=== PATIENT | female | born 2000 | race Hispanic/Latino ===

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

== ENCOUNTER 2019-01-28 09:14 | Day surgery (SDC) | payer OTHER ==
[2019-01-28 09:50] VITALS: BP 142/81; TEMP 98.1
[2019-01-28 09:51] VITALS: BMI 32.2
[2019-01-28] MEDS ORDERED: hydrALAZINE 20 MG/ML VIAL SLOW IVP PRN (10:05)
[2019-01-28 10:18] LABS: Amnisure Test No Membranes Rupture (No Rupture)
[2019-01-28 10:19] LABS: Amnisure Internal Control QC ACCEPTABLE (ACCEPTABLE)
[2019-01-28 11:11] LABS: Bilirubin Negative (Negative); Blood, Urine Negative (Negative); Glucose, Urine (Dipstick) Negative (Negative); Leukocyte Negative (Negative); Nitrite Negative (Negative); Protein, Urine (Dipstick) Negative (Neg-Trace); Urobilinogen 0.2 mg/dL (Less than 2)
[2019-01-28 11:12] LABS: Clarity Clear (Clear)
[2019-01-28 11:13] LABS: Urine Culture Reflex No No
[2019-01-28 11:25] LABS: Bacteria/HPF None Seen HPF (None Seen); RBC/HPF 0-3 HPF (0-3); WBC/HPF 0-3 HPF (0-3)
--- NOTE | 2019-01-28 13:32 | ULT ---
EXAM: OB ultrasound Biophysical profile COMPARISON: None HISTORY: female. Evaluate size, dates, and anatomy. TECHNIQUE: Multiplanar grayscale and color Doppler images were obtained in a transabdominal ult rasound. A biophysical profile was also performed. FINDINGS: There is a single live intrauterine with heart rate of 125 bpm. Estimated weight is 2241 g. Average age of the fetus based off today's examination is 34 weeks 1 day. BPD 8.50 cm -- 34 weeks 2 days HC 31.64 cm -- 35 weeks 4 days AC 29.90 cm -- 33 weeks 6 days FL 6.24 cm -- 32 weeks 2 days The placenta is anterior in location without focal abnormality. CHILANGO is 14.4 cm which is normal. The cervix is normal in length. There is no evidence of placenta previa. A biophysical profile was performed. The fetus scored 8 of 8 which is normal. IMPRESSION: 1. Single live intrauterine with estimated age of 34 weeks 1 day. 2. Normal biophysical profile
--- NOTE | 2019-01-28 13:32 | ULT ---
US Biophysical Profile: 01/28/2019 12:23 PM CLINICAL HISTORY: . COMPARISON: None. FINDINGS: heart rate: bpm. CHILANGO: cm Biophysical profile: 8 of 8 IMPRESSION: Normal biophysical profile
--- NOTE | 2019-01-28 13:44 | PRG ---
DATE OF SERVICE: 01/28/2019 PRIMARY OB: Flakito Morocho DO, MS CHIEF COMPLAINT: Leakage of fluid. HISTORY OF PRESENT ILLNESS: The patient is a 18-year-old G1, P0 female with an intrauterine at 32 weeks and a day, presenting for leakage of fluid that occurred about 3 or 4 this morning. The patient reports that she woke up and had her shorts and some of her bed wet and later in the morning began having worsening in her sharp pains and came in here for evaluation. The patient does report having intercourse last night prior to this event. She reports that she has had back and pelvic pain now for several weeks. The patient also is currently taking Macrobid for suppression as has a history of pyelonephritis earlier in this . The patient denies any recent fever or cough. She does report she is feeling under the weather and feeling pressure in her head and her ears. Believes that she is getting an illnesses going around in the community right now. She denies chest pain or shortness of breath. She has had nausea the last couple of months. Denies vomiting. Denies diarrhea or constipation. Reports hip problems, back problems that she attributes to the . She also reports pain from her back and down her right leg at times. She denies vaginal bleeding. She denies any change in discharge, leakage of fluid per HPI. Denies urinary urgency or frequency. PAST MEDICAL HISTORY: Negative. PAST SURGICAL HISTORY: Tonsillectomy. SOCIAL HISTORY: Denies drug, alcohol, or tobacco use. ALLERGIES: SULFA DRUGS. MEDICATIONS: 1. Macrobid for suppression. 2. Diclegis p.r.n. for nausea and vomiting. OB LABS: Blood type is A positive. Antibody screen is negative. Hepatitis B surface antigen is negative. HIV is negative. The patient was positive for gonorrhea and chlamydia back in August of this year, which is negative in October. The patient is rubella nonimmune. Diabetes screen is 92. Third trimester VDRL is nonreactive. Third trimester HIV is nonreactive. REVIEW OF SYSTEMS: Per HPI. PHYSICAL EXAMINATION: VITAL SIGNS: Blood pressure is 115/68, heart rate of 90, respiratory rate of 20 , temperature 98.1, and saturating 97% on room air. GENERAL: The patient appears to be in no acute distress. She is alert, oriented, cooperative, and pleasant to interact with. HEAD: Normocephalic and atraumatic. LUNGS: Clear to auscultation bilaterally. HEART: Regular rate and rhythm. ABDOMEN: Gravid, soft. She does have some sharp tenderness in her lower pelvic region with deviation of the uterus to the left and right. She has left-sided SI joint tenderness. She has some lower back paravertebral tenderness. No CVA tenderness. Vulva without masses, lesions, or erythema. Perineum is dry. Vagina is moist, but no evidence of pulling. No discharge. Cervix is visibly closed. heart tracing shows a baseline in the 130s, however, unable to get a strip long enough to get reactivity due to the movement. AmniSure test is negative. VPIII is pending. Ultrasound shows a BPP of 8/8 performed for nonreactive NST and normal fluid levels. ASSESSMENT AND PLAN: The patient is a 18-year-old female, who presented with leakage of fluid and pelvic pain and there is no evidence of rupture of membranes at this time. A VPIII is pending, those not available yet. The fetus is reassuring by BPP as it is difficult to keep the baby on the monitor for a heart tracing. The patient is being discharged to home. She has been given reassurance and is to follow up with her primary OB as scheduled. Addendum 01/28/19 [id number] VP3 + for doug- I have called the pt and left a message to contact L&D for lab results. Rx for metronidazole sent via electronic to pharmacy on record. Job ID: [id number] MTDD
== END 2019-01-28 13:14 | disposition home or self-care (01) ==
LOC: L&D/OP 09:14
PROVIDERS: ATTEND Obstetrics & Gynecology
DX: O99.89 Other specified diseases and conditions complicating pregnancy, childbirth and the puerperium (principal); N89.8 Other specified noninflammatory disorders of vagina; R10.2 Pelvic and perineal pain; O23.03 Infections of kidney in pregnancy, third trimester; Z3A.32 32 weeks gestation of pregnancy; Z88.2 Allergy status to sulfonamides
CPT/HCPCS: 51701; 76815; 76819; 81001; 84112; 87480; 87510; 87660; 99285

== ENCOUNTER 2019-01-30 11:01 | Day surgery (SDC) | payer OTHER ==
[2019-01-30] MEDS ORDERED: hydrALAZINE 20 MG/ML VIAL SLOW IVP PRN (12:17)
[2019-01-30] MEDS ORDERED: diphenhydrAMINE 50 MG/ML VIAL IVP SCH (13:00)
[2019-01-30] MEDS ORDERED: Lactated Ringer's 1,000 ML IV SCH (13:00)
[2019-01-30 13:11] VITALS: BMI 32.2
[2019-01-30 13:37] LABS: FFN Internal QC Analyzer PASS (PASS); FFN Internal QC Cassette PASS (PASS); Fetal Fibronectin Negative (Negative)
--- NOTE | 2019-01-30 16:22 | HP ---
PRIMARY OB: Flakito Morocho DO, MS CHIEF COMPLAINT: Mucus plug. HISTORY OF PRESENT ILLNESS: The patient is a 18-year-old G1, P0 female with an intrauterine at 32 weeks and 3 days, who is presenting to Labor and Delivery with multiple complaints. The patient reports early this morning, she had a few contractions, was unable to describe the frequency or intensity of these contractions other than that she was worried that maybe signs that her baby was coming. She did state for an hour, she was able to feel that she had 3 contractions in 15 minutes and then had a long pause. She was unable to describe how long, and she had contractions again. The patient reports that she had this one episode of mucus discharge, she noticed when she wiped. She has had 3-day course of cough and head congestion and loose stools. She has a sister who had a baby at 33 weeks, which is per her at worry that she may deliver early also. The patient denies fever. She denies falls or trauma. She denies headache. She reports head congestion, ear pressure and pain, particularly on the right side, and reports cough. Reports nausea and vomiting. Again states that she is unable to keep anything down, but when I asked to give specifics, she was unable to give specifics. She did say that she attempted last night after taking her iron and vitamin to take Zofran, and shortly after taking her Zofran, she vomited. The patient reports pelvic pain, this has been present for a while now, sharp in nature, and worse with activity and movement. Denies urinary urgency or frequency. She is taking her metronidazole for previously diagnosed bacterial vaginosis. PAST MEDICAL HISTORY: Negative. PAST SURGICAL HISTORY: She had tonsillectomy. SOCIAL HISTORY: Denies drug, alcohol, or tobacco use. ALLERGIES: SULFA DRUGS. MEDICATIONS: 1. Macrobid for suppression. 2. Metronidazole for bacterial vaginosis. 3. Diclegis p.r.n. for nausea and vomiting. OB LABS: Blood type is A positive. Antibody screen is negative. Hepatitis B surface antigen is negative. HIV is negative. The patient was positive for gonorrhea and chlamydia in August and then negative in October. She is rubella nonimmune. Diabetes screen was 92. Third trimester VDRL is nonreactive. Third trimester HIV is nonreactive. REVIEW OF SYSTEMS: Per HPI. PHYSICAL EXAMINATION: VITAL SIGNS: Blood pressure 110/64, heart rate of 89, respiratory rate of 18. GENERAL: She appears to be in no acute distress. She is alert, oriented, cooperative, and pleasant to interact with. HEENT: Head, normocephalic and atraumatic. Ear exam shows on the right, clear external canal with no erythema. The tympanic membrane is clear. No erythema or injection. There is fluid behind the eardrum, but is not purulent in nature and that is clear. Left ear, the patient has significant ear wax obstructing the visual field of the ear. LUNGS: Clear to auscultation bilaterally. HEART: Has regular rate and rhythm. ABDOMEN: Gravid and soft, nontender with deviation of manipulation to the uterus. EXTREMITIES: Nontender, nonedematous. : Vulva without masses, lesions, or erythema. Vagina is moist and visibly closed. She does have clear mucousy discharge at the presence of the external os. The patient is fingertip and 30% to 50% effaced. Of note. She had an ultrasound a couple days ago showing a cervical length of 2.8 cm. The patient has been given reassurance. heart tracing performed for pelvic pain, baseline is noted to be in the 130s with moderate long-term variability, positive 15/15 accelerations, no decelerations. Tocometer shows some episodes of irritability, not felt by the patient. LABORATORY DATA: fibronectin is negative. ASSESSMENT AND PLAN: The patient is a 18-year-old, G1, P0 female with an intrauterine at 32 weeks and 3 days, who worries about premature delivery. There is no evidence of labor at this time. fibronectin is negative. The patient is being discharged to home. Fetus is reassuring and reactive. She will be given Tylenol No. 3 to help with her cough and her discomfort. We have encouraged that she take it at night to help her sleep. She has also been counseled to take Benadryl 1/2 to 1 tablet every 4 hours and to hydrate aggressively. We spent about 10 minutes [id number] specifically discussing and describing how she can when and how to time her contractions and note the intensity. The patient again is being discharged to home. She has followup with primary OB next week, which we have encouraged that to keep. Job ID: [id number]
== END 2019-01-30 14:55 | disposition home health service (06) ==
LOC: L&D/OP 11:01
PROVIDERS: ATTEND Obstetrics & Gynecology
DX: O99.89 Other specified diseases and conditions complicating pregnancy, childbirth and the puerperium (principal); N89.8 Other specified noninflammatory disorders of vagina; O23.593 Infection of other part of genital tract in pregnancy, third trimester; B96.89 Other specified bacterial agents as the cause of diseases classified elsewhere; Z3A.32 32 weeks gestation of pregnancy; Z88.2 Allergy status to sulfonamides
CPT/HCPCS: 82731; J1200

== ENCOUNTER 2019-03-17 19:15 | Inpatient (IN) | payer OTHER ==
[2019-03-17 23:33] VITALS: BMI 33.7
[2019-03-18] MEDS ORDERED: hydrALAZINE 20 MG/ML VIAL SLOW IVP PRN ×2 (00:43→15:05)
[2019-03-18] MEDS ORDERED: Ondansetron PF 4 MG/2 ML Vial IVP PRN ×3 (00:43→15:05)
[2019-03-18] MEDS ORDERED: HYDROcodone/Acetaminophen 5/325 mg Tablet PO PRN ×3 (00:43→15:05)
[2019-03-18] MEDS ORDERED: Butorphanol Tartrate 1 MG/ML VIAL SLOW IVP PRN (00:43)
[2019-03-18] MEDS ORDERED: Lidocaine 1% (PF) 30 ML VIAL SC PRN (00:43)
[2019-03-18] MEDS ORDERED: Ibuprofen 800 MG TAB PO PRN (00:43)
[2019-03-18] MEDS ORDERED: Misoprostol 100 MCG TAB VAG SCH (00:45)
[2019-03-18] MEDS ORDERED: Lactated Ringer's 1,000 ML IV SCH (01:00)
[2019-03-18] MEDS: Misoprostol 100 MCG TAB VAG SCH ×2 (01:14→15:46)
[2019-03-18 01:32] LABS: Hemoglobin 12.3 g/dL (12.0-16.0); Mean Corpuscular HGB CONC 34.9 g/dL (32.0-36.0); Mean Corpuscular Hemoglobin 30.7 pg (25.0-35.0); Mean Corpuscular Volume 87.9 fL (78.0-98.0); Mean Platelet Volume 9.3 fL (7.4-10.4); Platelet Count 211 thou/uL (130-400); RBC Distribution Width 11.9 % (11.5-14.5); White Blood Cell (WBC) Count 11.6 thou/uL (4.8-10.8)
[2019-03-18 02:10] LABS: HBSAg Index 0.22 S/CO (0-0.99); Hep B Surf Ag Non-Reactive S/CO (NonReactive)
[2019-03-18 05:22] LABS: Syphilis Antibody Nonreactive (Nonreactive); Syphilis Antibody Index 0.03 S/CO (<1.00 Non-Reactive)
[2019-03-18] MEDS ORDERED: Fentanyl 4 mcg/Bup 0.1% Cadd 100 ML ONE (06:03)
[2019-03-18] MEDS: Lactated Ringer's 1,000 ML IV SCH ×2 (06:45→10:27)
[2019-03-18] MEDS ORDERED: Fentanyl 100 MCG/2 ML VIAL ONE (06:45)
[2019-03-18] MEDS ORDERED: Penicillin G Potassium 5 MILL.UNITS in Sodium Chloride 0.9% 100 ML IVPB SCH (07:00)
[2019-03-18] MEDS ORDERED: Acetaminophen 325 MG TAB PO PRN (07:19)
[2019-03-18] MEDS ORDERED: Lactated Ringer's 500 ML IV PRN (07:19)
[2019-03-18] MEDS ORDERED: ePHEDrine/0.9% NaCl/PF SYRINGE 50 mg/10 ml SLOW IVP PRN (07:19)
[2019-03-18] MEDS ORDERED: Promethazine HCl 25 MG/ML VIAL IM PRN (07:19)
[2019-03-18] MEDS ORDERED: Naloxone HCl 0.4 mg/ml Vial IVP PRN ×2 (07:19)
[2019-03-18] MEDS ORDERED: diphenhydrAMINE 50 MG/ML VIAL IVP PRN (07:19)
[2019-03-18] MEDS ORDERED: Communication Order-Pharmacy FS SCH (07:30)
[2019-03-18] MEDS ORDERED: Fentanyl 4 mcg/Bupivacaine 0.1% Cassette 100 ML EPIDURAL SCH (07:30)
[2019-03-18] MEDS ORDERED: NS w/ Oxytocin 10 units 500 ML ONE (07:56)
[2019-03-18] MEDS: Penicillin G 2.5 MILL.units 2.5 MILL.UNITS in Premix Bag 1 BAG IVPB SCH ×2 (10:58→15:46)
[2019-03-18] MEDS ORDERED: Bupivacaine HCl 0.25%/Epi 0.0005/PF 10 ML VIAL FS ONE (11:11)
[2019-03-18] MEDS: NS / Oxytocin 40 units/1000ml 1,000 ML IV PRN ×2 (11:45→12:52)
--- NOTE | 2019-03-18 12:48 | PDOC.OPDEL ---
OB Operative/Delivery Note Delivery Dr/Surgeon: Rashawn Pre-Delivery Diagnosis: elective induction Procedure/Post Delivery Dx: spontaneous vaginal delivery Weeks gestation: 39 Anesthesia: epidural - Findings A Sex: female - Additional Findings/Plan Placenta delivered: spontaneous Repaired Obstetrical Laceration: periurethral Estimated blood loss: <200ml Post delivery plan: routine recovery
[2019-03-18] MEDS ORDERED: diphenhydrAMINE 25 MG CAP PO PRN (15:05)
[2019-03-18] MEDS ORDERED: Milk Of Magnesia 30 ML UDCUP PO PRN (15:05)
[2019-03-18] MEDS ORDERED: Benzocaine-Menthol 82.5 ML CAN TOP PRN (15:05)
[2019-03-18] MEDS ORDERED: Bisacodyl 10 MG SUPP PR PRN (15:05)
[2019-03-18] MEDS ORDERED: NS / Oxytocin 40 units/1000ml 1,000 ML IV SCH (15:05)
[2019-03-18] MEDS: HYDROcodone/Acetaminophen 5/325 mg Tablet PO PRN ×2 (15:28→20:50)
[2019-03-18] MEDS: Docusate Calcium (SURFAK) 240 MG CAP PO SCH (20:51)
[2019-03-18] MEDS: Ibuprofen 800 MG TAB PO SCH (22:00)
[2019-03-18] MEDS: Lanolin Ointment 7 GM TUBE TOP PRN (22:05)
[2019-03-19] MEDS: Ibuprofen 800 MG TAB PO SCH ×3 (05:02→21:14)
[2019-03-19] MEDS: HYDROcodone/Acetaminophen 5/325 mg Tablet PO PRN ×3 (05:46→18:44)
--- NOTE | 2019-03-19 08:16 | PDOC.PP ---
Post Progress Note Post Day #: 1 Subjective: doing well, no concerns, latching well, normal lochia PO intake tolerated: yes Flatus: yes Ambulation: yes Vital Signs (12 hours) Temp Pulse Resp BP Pulse Ox 03/19/19 08:11 97.9 F 74 20 108/57 L 97 03/19/19 05:00 97.8 F 67 20 105/59 L 97 03/19/19 02:28 98.0 F 94 20 112/62 98 03/18/19 20:20 98.7 F 75 16 107/55 L 95 Weight Weight 197 lb - Physical Examination General: NAD Respiratory: non-labored breathing Abdominal: no distention Fundus firm & at: below umb Psychiatric: A&Ox3, normal affect Result Diagrams: 03/18/19 01:19 Additional Labs: Post Labs Blood Type A POSITIVE 03/18/19 01:19 Hep Bs Antigen Non-Reactive S/CO (NonReactive) 03/18/19 01:19 (1) 39 weeks gestation of Code(s): Z3A.39 - 39 WEEKS GESTATION OF Status: Acute (2) Vaginal delivery Code(s): O80 - ENCOUNTER FOR FULL-TERM UNCOMPLICATED DELIVERY Status: Acute - Assessment/Plan PPD1 doing well, plan for DC tomorrow AM.
[2019-03-19] MEDS: Ferrous Sulfate 325 MG TAB PO SCH ×3 (08:37→15:48)
[2019-03-19] MEDS: Prenatal Vitamin 1 TAB PO SCH (08:40)
[2019-03-19] MEDS: Docusate Calcium (SURFAK) 240 MG CAP PO SCH ×2 (08:40→21:13)
[2019-03-19] MEDS ORDERED: Adacel (T-DAP) 0.5 ML SYRINGE IM ONE (15:05)
[2019-03-19] MEDS: Lanolin Ointment 7 GM TUBE TOP PRN (18:50)
[2019-03-20] MEDS: Ibuprofen 800 MG TAB PO SCH (06:12)
[2019-03-20] MEDS: Ferrous Sulfate 325 MG TAB PO SCH (07:30)
[2019-03-20 08:24] VITALS: BP 121/54; TEMP 98.3
--- NOTE | 2019-03-20 08:34 | PDOC.PP ---
Post Progress Note Post Day #: 2 Subjective: doing well, no concerns, request rx for breast pump PO intake tolerated: yes Flatus: yes Ambulation: yes Vital Signs (12 hours) Temp Pulse Resp BP Pulse Ox 03/20/19 08:22 98.3 F 69 20 121/54 L 98 Weight Weight 197 lb - Physical Examination General: NAD Respiratory: non-labored breathing Abdominal: no distention Skin: no rash Psychiatric: A&Ox3, normal affect Result Diagrams: 03/18/19 01:19 Additional Labs: Post Labs Blood Type A POSITIVE 03/18/19 01:19 Hep Bs Antigen Non-Reactive S/CO (NonReactive) 03/18/19 01:19 (1) 39 weeks gestation of Code(s): Z3A.39 - 39 WEEKS GESTATION OF Status: Acute (2) Vaginal delivery Code(s): O80 - ENCOUNTER FOR FULL-TERM UNCOMPLICATED DELIVERY Status: Acute - Assessment/Plan PPD2 doing well, plan for DC today.
[2019-03-20] MEDS: Prenatal Vitamin 1 TAB PO SCH (09:20)
[2019-03-20] MEDS: Docusate Calcium (SURFAK) 240 MG CAP PO SCH (09:20)
[2019-03-20] MEDS ORDERED: Measles/Mumps/Rubella 10 MCG/0.5 ML VIAL SC ONE (11:00)
== END 2019-03-20 11:55 | disposition home or self-care (01) | DRG 807 ==
LOC: L&D 23:03 → 3SW 03-18 15:40
PROVIDERS: ADMIT Student in an Organized Health Care Education/Training Program; ATTEND Student in an Organized Health Care Education/Training Program
PROC: 10E0XZZ Delivery of Products of Conception, External Approach (ICD-10-PCS; principal; 2019-03-18)
PROC: 0HQ9XZZ Repair Perineum Skin, External Approach (ICD-10-PCS; 2019-03-18)
PROC: 3E033VJ Introduction of Other Hormone into Peripheral Vein, Percutaneous Approach (ICD-10-PCS; 2019-03-18)
DX: O99.824 Streptococcus B carrier state complicating childbirth (principal); Z37.0 Single live birth; Z3A.39 39 weeks gestation of pregnancy; O70.0 First degree perineal laceration during delivery
CPT/HCPCS: 36415; 51702; 85027; 86780; 86850; 86900; 86901; 87340; 90471; 90707; 90732; G0009; J0595; J2540; J2590; J3010; J3490

== ENCOUNTER 2019-06-18 22:40 | Inpatient (IN) | payer MEDICAID, OTHER ==
[2019-06-18 23:43] LABS: Bacteria/HPF None Seen HPF (None Seen); Bilirubin Negative (Negative); Blood, Urine Negative (Negative); Clarity Turbid (Clear); Glucose, Urine (Dipstick) Normal (Negative); Leukocyte 75 Leu/uL (Negative); Nitrite Negative (Negative); Protein, Urine (Dipstick) 10 mg/dL (Neg-Trace); RBC/HPF 0-3 HPF (0-3); Urobilinogen 6 mg/dL (Less than 2)
[2019-06-18 23:44] LABS: Pregnancy Test - Urine (BHCG) Negative (Negative); Pregu Control Background? CLEAR/WHITE (CLR/WHITE); Pregu Control Bar Appear? YES (CONTROL BAR); Specific Gravity 1.025 (1.002-1.036)
[2019-06-19] MEDS ORDERED: Ondansetron ODT 4 MG TAB ONE (00:30)
[2019-06-19 00:50] LABS: #Lymphocytes 2.4 thou/uL (1.20-3.40); #Monocytes 0.6 thou/uL (0.11-0.59); #Neutrophils 9.2 thou/uL (1.40-6.50); %Basophils 0.2 % (0.0-1.0); %Eosinophils 0.4 % (0.0-10.0); %Lymphocytes 19.4 % (28.0-48.0); %Neutrophils 75.1 % (31.0-61.0); Hemoglobin 15.1 g/dL (12.0-16.0); Mean Corpuscular HGB CONC 33.8 g/dL (32.0-36.0); Mean Corpuscular Hemoglobin 29.5 pg (25.0-35.0); Mean Corpuscular Volume 87.3 fL (78.0-98.0); Mean Platelet Volume 8.3 fL (7.4-10.4); Platelet Count 320 thou/uL (130-400); RBC Distribution Width 11.7 % (11.5-14.5); Red Blood Cell (RBC) Count 5.12 mill/uL (4.00-5.20); White Blood Cell (WBC) Count 12.3 thou/uL (4.8-10.8)
[2019-06-19 01:13] LABS: ALT (SGPT) 140 U/L (8-55); AST (SGOT) 195 U/L (5-30); Albumin 4.9 g/dL (3.5-5.0); Alkaline Phosphatase 175 U/L (40-100); Anion Gap 14 mmol/L (10-20); BUN (Urea Nitrogen) 11 mg/dL (8.4-21.0); Bilirubin, Total 0.9 mg/dL (0.2-1.2); Calc. Creatinine Clearance 0 mL/min (70-130); Carbon Dioxide 27 mmol/L (22-29); Chloride 105 mmol/L (98-107); Estimated GFR-MDRD Greater than 90; Globulin 3.9 g/dL (2.4-3.5); Glucose 102 mg/dL (70-105); Lipase 30 U/L (8-78); Potassium 3.9 mmol/L (3.5-5.1); Protein, Total 8.8 g/dL (6.0-8.3); Sodium 142 mmol/L (136-145)
[2019-06-19] MEDS ORDERED: HYDROcodone/Acetaminophen 5/325 mg Tablet ONE (01:15)
[2019-06-19] MEDS ORDERED: Sodium Chloride 0.9% 100 ML ONE ×2 (02:45→16:52)
[2019-06-19] MEDS ORDERED: Piperacillin/Tazobactam 3.375 GM VIAL ONE ×2 (02:45→16:52)
[2019-06-19] MEDS ORDERED: Fentanyl 100 MCG/2 ML VIAL ONE ×2 (03:42→16:29)
[2019-06-19] MEDS ORDERED: Ondansetron ODT 4 MG TAB SL PRN (04:07)
[2019-06-19] MEDS ORDERED: Ondansetron PF 4 MG/2 ML Vial IVP PRN (04:07)
[2019-06-19] MEDS: Dextrose 5 % And 0.9 % NaCl 1,000 ML IV SCH ×2 (04:59→11:14)
--- NOTE | 2019-06-19 06:50 | ULT ---
RIGHT UPPER QUADRANT ULTRASOUND: Date: 06/19/2019 INDICATION: Right upper quadrant pain with radiation to right shoulder and back for 3 months with nausea and vomi ting. FINDINGS: Gallbladder is moderately distended. Common bile duct is enlarged, measuring 9.1 mm. No pericholecyst ic fluid is evident. There is report of a positive sonographic Kelley's sign. No cole intrahepatic b iliary ductal dilatation is noted. Visualized aspects of the pancreas appear within normal limits. A majority of the pancreas is obscure d. Right kidney measures 9.8 x 3.6 x 4.1 cm. No focal renal lesion or hydronephrosis is demonstrated. IMPRESSION: 1. Gallbladder distention without visible gallstones. There is report of sonographic Kelley's sign. Findings are equivocal by ultrasound for acute cholecystitis. 2. Dilated common bile duct which is 9.1 mm. This is prominent for age and a distal obstructing proc ess such as distal obstructing stone or sludge is of concern. Recommend consideration for a MRCP eval uation and GI consultation. POS: HARMONY
[2019-06-19] MEDS ORDERED: Piperacillin/Tazobactam 3.375 GM in Sodium Chloride 0.9% 100 ML IVPB SCH (09:00)
[2019-06-19 09:05] LABS: #Eosinphils 0.1 thou/uL (0.0-0.7); #Monocytes 0.6 thou/uL (0.11-0.59); #Neutrophils 4.1 thou/uL (1.40-6.50); %Basophils 0.5 % (0.0-1.0); %Eosinophils 0.8 % (0.0-10.0); %Lymphocytes 38.7 % (28.0-48.0); %Monocytes 7.3 % (0.0-4.0); %Neutrophils 52.7 % (31.0-61.0); Hemoglobin 12.4 g/dL (12.0-16.0); Mean Corpuscular HGB CONC 32.3 g/dL (32.0-36.0); Mean Corpuscular Hemoglobin 28.5 pg (25.0-35.0); Mean Corpuscular Volume 88.3 fL (78.0-98.0); Platelet Count 272 thou/uL (130-400); RBC Distribution Width 11.8 % (11.5-14.5); Red Blood Cell (RBC) Count 4.35 mill/uL (4.00-5.20); White Blood Cell (WBC) Count 7.7 thou/uL (4.8-10.8)
[2019-06-19 09:27] LABS: ALT (SGPT) 138 U/L (8-55); AST (SGOT) 125 U/L (5-30); Albumin 3.6 g/dL (3.5-5.0); Alkaline Phosphatase 135 U/L (40-100); Anion Gap 7 mmol/L (10-20); BUN (Urea Nitrogen) 10 mg/dL (8.4-21.0); Bilirubin, Total 0.6 mg/dL (0.2-1.2); Calc. Creatinine Clearance 183 mL/min (70-130); Calcium 8.3 mg/dL (7.8-10.44); Carbon Dioxide 28 mmol/L (22-29); Chloride 108 mmol/L (98-107); Estimated GFR-MDRD Greater than 90; Globulin 2.7 g/dL (2.4-3.5); Glucose 111 mg/dL (70-105); Lipase 14 U/L (8-78); Potassium 3.7 mmol/L (3.5-5.1); Protein, Total 6.3 g/dL (6.0-8.3); Sodium 139 mmol/L (136-145)
[2019-06-19] MEDS ORDERED: Sodium Chloride 0.9% 1,000 ML IV SCH (09:45)
--- NOTE | 2019-06-19 10:36 | HP ---
CHIEF COMPLAINT: Abdominal pain. HISTORY OF PRESENT ILLNESS: Ms. Beckham is a 18-year-old woman, who is 3 months . She states that started having intermittent abdominal pain shortly after her delivery. She thought that it might just be cramping because she had had an IUD implanted, so she was just managing it symptomatically. She would have episodes of nausea and vomiting, but that usually went away within an hour or so of the onset of symptoms. Yesterday she had her most severe episode yet and states that the nausea and vomiting became intractable and nothing that she was taking to try to help her symptoms with staying down, so she came to the emergency room. She was evaluated and found to have severe right upper quadrant tenderness and elevated LFTs and white count on imaging of her gallbladder. Her gallbladder was distended and had a positive ultrasonographic Kelley sign, no visible stones in the gallbladder. The bile duct was enlarged to 9 mm. No hydronephrosis was seen. She states that her recent was complicated by preeclampsia, but she has not had any problems with her blood pressure since delivery. She was admitted for pyelonephritis during her as well, which was treated medically and resolved. She has not had any kidney problems since then that she knows of. She states that her previous episodes of pain were more diffuse, but the episode last night was localized to the right upper quadrant and radiated to her back and she describes the pain as unbearable and unrelenting. She states that it did get a little better overnight, but it is starting to come back today. She was noted to have a low heart rate and blood pressure this morning, but was able to get up and take her shower, however, she states that she was little dizzy when she was taking the shower and had to use the stool for her shower which is not typical for her. She thinks this may be due to all of the vomiting that she did yesterday. She has not had problems with low blood pressure or hear rate in the past. PAST MEDICAL HISTORY: Asthma, but she has not used her inhaler in several months and preeclampsia during her recent and pyelonephritis during her recent . PAST SURGICAL HISTORY: Tonsillectomy and adenoidectomy at 1 years of age. FAMILY HISTORY: All of her female relatives had gallbladder removed. Her grandmother had a heart attack and stroke in her 70s. Her grandfather had lung cancer and several family members have diabetes and hypertension. SOCIAL HISTORY: She does not smoke, drink, or use illicit drugs nor does she have any history of excessive alcohol use. She is here with her boyfriend, whom she designate as medical decision maker if she is unable to make decisions for herself. REVIEW OF SYSTEMS: Ten system review of systems is negative except per HPI. No fevers, chills, jaundice or icterus during her recent episode of pain. No dysuria or hematuria. PHYSICAL EXAMINATION: VITAL SIGNS: Heart rate 45, blood pressure 90/56, 97% saturation on room air with respiratory rate of 18, temperature is 97.8, heart rate has mostly been in the 60s prior to this recent check. GENERAL: Reveals a healthy-appearing young woman, in no acute distress. She is not flushed or toxic in appearance. She is not jaundiced or icteric. HEENT: Unremarkable. NECK: Supple without lymphadenopathy or thyroid nodules. HEART: Regular in its rate and rhythm without murmurs, rubs, or gallops. LUNGS: Clear to auscultation bilaterally. ABDOMEN: Soft and nondistended without palpable masses or hernias. She is mildly diffusely tender, but extremely tender to palpation in the right upper quadrant. There is some fullness in the area consistent with a distended gallbladder. She has a positive Kelley sign and some voluntary guarding. EXTREMITIES: Warm and well perfused without edema. NEUROLOGIC: No focal deficits. PSYCHIATRIC: Alert, oriented, and appropriate. LABORATORY DATA: White count was elevated on admission at 12, but has come down to 7.7 since admission. Electrolytes are unremarkable. LFTs are mildly elevated. Bilirubin was in the high range of normal at 0.9 whereas her baseline has been 0.4 to 0.6 in the past, but this has come down to 0.6 this morning on recheck. AST has gone from 195 to 125, ALT from 140 to 138, and alkaline phosphatase from 175 to 35. Lipase has remained normal at 14. Urinalysis last night was negative for blood with no bacteria seen and urine test was negative. Ultrasound images are reviewed and I agree with the written report. The gallbladder is somewhat dilated, but there is no pericholecystic fluid or wall thickening. Her bile duct is somewhat dilated as well, especially for her young age. ASSESSMENTS: Cholecystitis with concern for choledocholithiasis given the elevation in her LFTs. Her LFTs have come down somewhat overnight. I think it is reasonable to proceed with laparoscopic cholecystectomy primarily with an intraoperative cholangiogram to evaluate the common bile duct. If she does have any evidence of obstruction to flow, then Gastroenterology will be consulted for ERCP. The patient does give consent to proceed with ERCP if necessary. The procedure of laparoscopic cholecystectomy with cholangiogram was discussed with the patient. Inherent risks were also discussed. These include, but are not limited to, bleeding, infection, risks of anesthesia, damage to nearby structures including bowel, liver, and bile duct, and need for other procedures including ERCP. She understands and accepts these risks and wishes to proceed. We will continue with her perioperative antibiotics. Since she does not have any history of bradycardia in the past, I have ordered a 12-lead EKG, but on examination she appears to be in sinus rhythm with some physiologic increase in her heart rate with deep respiration, so I think this is most likely sinus bradycardia due to her young age and good health. I have ordered some additional IV fluids given her protracted nausea and vomiting yesterday and her dizziness when she was up taking her shower earlier this morning. She has IV pain medication and nausea medication ordered as needed and she has been added on to the OR list for today. Job ID: [id number]
[2019-06-19] MEDS: Morphine 2 MG/ML SYRINGE SLOW IVP PRN ×3 (11:12→23:46)
[2019-06-19] MEDS: D5 1/2 NS w/20 mEq KCL 1,000 ML ONE ×2 (11:24→11:39)
[2019-06-19] MEDS ORDERED: D5 1/2 NS w/20 mEq KCL 0 ML ONE (11:26)
[2019-06-19] MEDS ORDERED: D5 1/2 NS w/20 mEq KCL 1,000 ML ONE (11:42)
[2019-06-19] MEDS ORDERED: PROPOFOL 200 MG/20 ML VIAL ONE (14:43)
[2019-06-19] MEDS ORDERED: Glycopyrrolate 0.2 MG/ML 5 ML SYRINGE ONE (14:43)
[2019-06-19] MEDS ORDERED: Lidocaine 1% PF 5 ML VIAL ONE (14:43)
[2019-06-19] MEDS ORDERED: Ondansetron PF 4 MG/2 ML Vial ONE (14:43)
[2019-06-19] MEDS ORDERED: Ketorolac Tromethamine 30 MG/ML VIAL ONE (14:43)
[2019-06-19] MEDS ORDERED: Rocuronium Bromide 10 MG/ML (10ML VIAL) ONE (14:43)
[2019-06-19] MEDS ORDERED: Dexamethasone 20 MG/5 ML VIAL ONE (14:43)
[2019-06-19] MEDS ORDERED: Lidocaine 1% w/Epinephrine 1:100K 20 ML VIAL ONE (16:23)
[2019-06-19] MEDS ORDERED: Bupivacaine PF 0.5% 30 ML VIAL ONE (16:23)
[2019-06-19] MEDS ORDERED: Iothalamate Meglumine 60% 50 ML VIAL FS ONE (16:24)
[2019-06-19] MEDS ORDERED: PACU-Morphine 4MG/ML VIAL SLOW IVP PRN (18:30)
[2019-06-19] MEDS ORDERED: Promethazine HCl 25 MG/ML VIAL SLOW IVP PRN (18:30)
[2019-06-19] MEDS ORDERED: HYDROmorphone 2 MG/ML VIAL SLOW IVP PRN (18:30)
[2019-06-19] MEDS ORDERED: Meperidine HCl/PF 25 MG/ML VIAL SLOW IVP PRN (18:30)
[2019-06-19] MEDS ORDERED: Promethazine HCl 25 MG/ML VIAL IM PRN (18:30)
[2019-06-19] MEDS ORDERED: Morphine Sulfate 2 MG/ML SYRINGE SLOW IVP PRN (18:30)
[2019-06-19] MEDS ORDERED: Ondansetron HCl/PF 4 MG/2 ML Vial IVP PRN (18:30)
--- NOTE | 2019-06-19 18:38 | PDOC.OP ---
Operative Note - Operative Note Operative Note: DATE OF PROCEDURE: 06/19/2019 PROCEDURES: Laparoscopic cholecystectomy with intraoperative cholangiogram. SURGEON: Ninoska He M.D. PREOPERATIVE DIAGNOSIS: Cholecystitis POSTOPERATIVE DIAGNOSIS: Cholecystitis and choledocholithiasis FINDINGS: Distended gallbladder with omental adhesions. Abnormal cholangiogram with partially obstructing lucencies in the distal common bile duct. HISTORY: Patient with signs and symptoms of biliary colic. Laparoscopic cholecystectomy was recommended for symptomatic relief and prevention of future episodes. Intraoperative cholangiogram was also recommended. PROCEDURE: After informed consent was obtained and appropriate preoperative antibiotics were administered, the patient was taken to the operating room and placed in the supine position and general endotracheal anesthesia was administered. The stomach was decompressed with an OG tube and the abdomen was prepped and draped in standard sterile fashion. Local anesthesia was infused to the skin and subcutaneous tissues at the umbilical level. A transverse skin incision was made. The fascia was elevated and a Veress needle was placed into the abdominal cavity without difficulty. Opening pressure was less than 5 and carbon dioxide gas easily insufflated to an intra-abdominal pressure of 15, which the patient tolerated well. The Veress needle was withdrawn and a [place] port advanced under direct vision. The abdominal cavity was carefully examined. There was no evidence of Veress needle or of trocar injury. Local anesthesia was infused to the skin and subcutaneous tissues at the epigastric, right upper quadrant, and right lateral abdominal sites and trocars were placed under direct vision of the laparoscope. The fundus of the gallbladder was grasped and retracted superiorly. Omental adhesions were taken down through the avascular plane exposing the infundibulum. The infundibulum was grasped and retracted laterally. The serosa was stripped inferiorly at the level of the neck of the gallbladder exposing the cystic duct and artery which were traced clearly to their insertion in the gallbladder. These were dissected free circumferentially and the cystic duct was clipped at the level of the neck of the gallbladder. The cystic artery was clipped but not divided. An incision was made in the cystic duct inferior to the clip and the cystic duct was palpated with no stones palpable. Clear bile was seen to flow from the cystic duct incision. A cholangiogram catheter was introduced and placed into the cystic duct and secured with a clip. A cholangiogram was obtained which showed an adequate length of cystic duct. There was normal filling of the common bile duct down to the distal common bile duct were there was a meniscus sign and lucencies with very little contrast getting into the duodenum. Glucagon was administered and allowed to circulate for 3 minutes and a second cholangiogram obtained which showed continued partially obstructing lucencies in the distal common bile duct. There was normal retrograde flow into the common hepatic duct beyond the level of the bifurcation without filling defects. Dr. Quintana of gastroenterology was contacted for possible immediate ERCP but unfortunately the ERCP cart was already in use for another procedure so the patient was scheduled for ERCP tomorrow. The cholangiogram catheter was removed and the cystic duct clipped below the incision in the cystic duct. The cystic duct was divided between these clips and the previously placed clip. The cystic artery was clipped and divided between the previously placed clips. The gallbladder was then dissected free of the gallbladder bed using hook electrocautery. Prior to complete removal of the gallbladder from the gallbladder bed, the area of the cystic duct and artery stumps was examined. The clips were in good position completely across these structures and there was no bleeding and no leakage of bile. The gallbladder was then placed into an EndoCatch bag and drawn out through the epigastric incision. The epigastric trocar was replaced and the operative site easily irrigated to clear. There was no significant bleeding or spillage of bile. The epigastric trocar was removed and the fascia closed under direct laparoscopic vision with a 0 Vicryl suture on a GraNee needle in a [id number] manner with excellent technical result. The right upper quadrant and right lateral abdominal trocars were removed and hemostasis verified. Carbon dioxide gas was allowed to desufflate through the umbilical trocar which was then removed. The skin incisions were closed with 4-0 subcuticular Monocryl sutures and Dermabond dressings were placed. The patient was extubated and taken to the recovery room in good condition. There were no complications. ESTIMATED BLOOD LOSS: Minimal. SPECIMEN : Gallbladder and contents.
[2019-06-19] MEDS ORDERED: Fentanyl 100 MCG/2 ML VIAL SLOW IVP PRN (19:35)
[2019-06-19] MEDS ORDERED: Acetaminophen 325 MG TAB PO PRN (19:36)
[2019-06-19] MEDS: D5 1/2 NS w/20 mEq KCL 1,000 ML IV SCH (19:43)
[2019-06-19] MEDS ORDERED: Pantoprazole 40 MG VIAL IVP SCH (19:45)
[2019-06-19] MEDS: Ondansetron PF 4 MG/2 ML Vial SLOW IVP PRN (23:46)
[2019-06-19] MEDS: Piperacillin/Tazobactam 3.375 GM in Sodium Chloride 0.9% 100 ML IVPB SCH (23:47)
--- NOTE | 2019-06-20 00:30 | CON ---
DATE OF CONSULTATION: 06/19/2019 REQUESTING PHYSICIAN: Ninoska He MD REASON FOR CONSULTATION: Choledocholithiasis. HISTORY OF PRESENT ILLNESS: Coleen Beckham is a 18-year-old woman, who is three months . She has been having intermittent abdominal pain for about the past 3 months since delivery, associated with nausea and vomiting. It became quite severe yesterday. She was found to have leukocytosis, as well as some elevation in transaminases and abdominal ultrasound showed gallbladder distention with positive Kelley sign, though no stones visualized, but the bile duct was enlarged to [address] He took the patient for laparoscopic cholecystectomy this afternoon. Intraoperative cholangiogram was performed and I have viewed the images, and the cholangiogram does indeed show lucencies in the distal common bile duct consistent with choledocholithiasis. The procedure otherwise went well. The patient is recovering in the PACU, awake and alert. She has no other complaints. PAST MEDICAL HISTORY: Preeclampsia, pyelonephritis, asthma, well controlled. Tonsillectomy and adenoidectomy, cholecystectomy earlier today, 06/19/2019. FAMILY HISTORY: Multiple family members have had cholecystectomy. Grandfather had lung cancer. SOCIAL HISTORY: No smoking, alcohol, or drug use. ALLERGIES: SULFA. OUTPATIENT MEDICATIONS: Ibuprofen as needed. INPATIENT MEDICATIONS: 1. Morphine p.r.n. 2. Ondansetron p.r.n. 3. Promethazine p.r.n. PHYSICAL EXAMINATION: VITAL SIGNS: Pulse 56, blood pressure 126/81, and 100% oxygen saturation on room air. GENERAL: Somnolent but arousable and able to converse appropriately, in no acute distress. SKIN: No jaundice. No rashes were palpable. EYES: No scleral icterus. Extraocular movements intact. ENT: Mucous membranes are moist. No oral lesions. LYMPH: No submandibular or supraclavicular lymphadenopathy. THYROID: Nontender to palpation. HEART: Regular rate and rhythm. LUNGS: Clear to auscultation bilaterally. ABDOMEN: Mild distention. Bowel sounds are hypoactive. Incision sites look good. Some diffused tenderness to palpation. EXTREMITIES: No peripheral edema. VESSELS: Radial pulses 2+ bilaterally. NEURO: Cranial nerves 2 through 12 intact bilaterally. No focal deficits. LABORATORY STUDIES: WBC 7.7, platelets 272, hemoglobin 12.4. Sodium 139, potassium 3.7, BUN 10, creatinine 0.63, total bilirubin 0.6, alkaline phosphatase 135, AST 125, ALT 138, lipase only 14, albumin 3.6. Urinalysis showed 4 to 6 wbc's. Urine test negative. IMAGING STUDIES: Preoperative abdominal ultrasound demonstrated distended gallbladder with enlarged common bile duct measuring 9.1 mm with positive Kelley sign. Intraoperative cholangiogram was also reviewed and this does show dilation of the common bile duct with lucency in the distal common bile duct consistent with choledocholithiasis. ASSESSMENT AND PLAN: 1. Choledocholithiasis, based on positive intraoperative cholangiogram. 2. Elevated LFTs. I have discussed the case with Dr. He, as well as with the patient. Endoscopic retrograde cholangiopancreatography is indicated for clearance of the common bile duct and likely biliary sphincterotomy. We can plan to accomplish this tomorrow. Procedure was discussed in detail. Thank you for the consultation. Please call anytime with questions or concerns. Job ID: [id number]
[2019-06-20] MEDS: Morphine 2 MG/ML SYRINGE SLOW IVP PRN ×4 (03:28→20:48)
[2019-06-20] MEDS: Piperacillin/Tazobactam 3.375 GM in Sodium Chloride 0.9% 100 ML IVPB SCH ×3 (05:13→17:44)
[2019-06-20 05:39] LABS: #Lymphocytes 1.3 thou/uL (1.20-3.40); #Monocytes 0.1 thou/uL (0.11-0.59); #Neutrophils 7.4 thou/uL (1.40-6.50); %Basophils 0.2 % (0.0-1.0); %Lymphocytes 14.7 % (28.0-48.0); %Monocytes 1.5 % (0.0-4.0); %Neutrophils 83.5 % (31.0-61.0); Hemoglobin 12.6 g/dL (12.0-16.0); Mean Corpuscular HGB CONC 34.2 g/dL (32.0-36.0); Mean Corpuscular Volume 87.6 fL (78.0-98.0); Mean Platelet Volume 8.5 fL (7.4-10.4); Platelet Count 257 thou/uL (130-400); RBC Distribution Width 11.5 % (11.5-14.5); White Blood Cell (WBC) Count 8.9 thou/uL (4.8-10.8)
[2019-06-20 06:15] LABS: ALT (SGPT) 145 U/L (8-55); AST (SGOT) 88 U/L (5-30); Albumin 3.8 g/dL (3.5-5.0); Alkaline Phosphatase 147 U/L (40-100); Anion Gap 13 mmol/L (10-20); BUN (Urea Nitrogen) 6 mg/dL (8.4-21.0); Bilirubin, Total 0.5 mg/dL (0.2-1.2); Calc. Creatinine Clearance 175 mL/min (70-130); Calcium 8.9 mg/dL (7.8-10.44); Carbon Dioxide 22 mmol/L (22-29); Chloride 105 mmol/L (98-107); Estimated GFR-MDRD Greater than 90; Globulin 2.9 g/dL (2.4-3.5); Glucose 142 mg/dL (70-105); Lipase 11 U/L (8-78); Potassium 4.1 mmol/L (3.5-5.1); Protein, Total 6.7 g/dL (6.0-8.3); Sodium 136 mmol/L (136-145)
--- NOTE | 2019-06-20 09:51 | RAD ---
OPERATIVE CHOLANGIOGRAM: History: Laparoscopic cholecystectomy. FINDINGS: Single contrast-injected image was performed which shows filling of a common duct. There is a filling defect at the ampulla. It is possible that this a air bubble, but a small stone is not excluded. The duct appears slightly dilated. IMPRESSION: Questionable stone or spasm in the region of the ampulla, less likely an air bubble. POS: TPC
[2019-06-20] MEDS ORDERED: diphenhydrAMINE 50 MG/ML VIAL ONE (10:27)
[2019-06-20] MEDS ORDERED: PROPOFOL 200 MG/20 ML VIAL ONE (10:27)
[2019-06-20] MEDS ORDERED: Glycopyrrolate 0.2 MG/ML 5 ML SYRINGE ONE (10:27)
[2019-06-20] MEDS ORDERED: Ondansetron PF 4 MG/2 ML Vial ONE ×2 (10:27→15:04)
[2019-06-20] MEDS ORDERED: Dexamethasone 20 MG/5 ML VIAL ONE (10:27)
[2019-06-20] MEDS ORDERED: Rocuronium Bromide 10 MG/ML (10ML VIAL) ONE (10:27)
[2019-06-20] MEDS ORDERED: Ketorolac Tromethamine 30 MG/ML VIAL ONE (10:27)
[2019-06-20] MEDS ORDERED: Lidocaine 1% PF 5 ML VIAL ONE (10:27)
[2019-06-20] MEDS ORDERED: Naloxone HCl 0.4 mg/ml Vial ONE (10:28)
[2019-06-20] MEDS: D5 1/2 NS w/20 mEq KCL 1,000 ML IV SCH ×2 (10:55→17:42)
[2019-06-20] MEDS ORDERED: Indomethacin 50 MG SUPP ONE (12:18)
[2019-06-20] MEDS ORDERED: Iothalamate Meglumine 60% 50 ML VIAL FS ONE (12:18)
[2019-06-20] MEDS ORDERED: Fentanyl 100 MCG/2 ML VIAL ONE (12:36)
[2019-06-20] MEDS ORDERED: Meperidine HCl/PF 25 MG/ML VIAL SLOW IVP PRN (13:30)
[2019-06-20] MEDS ORDERED: HYDROmorphone 2 MG/ML VIAL SLOW IVP PRN (13:30)
[2019-06-20] MEDS ORDERED: Promethazine HCl 25 MG/ML VIAL SLOW IVP PRN (13:30)
[2019-06-20] MEDS ORDERED: Promethazine HCl 25 MG/ML VIAL IM PRN (13:30)
--- NOTE | 2019-06-20 13:54 | RAD ---
ERCP: 06/20/2019 COMPARISON: None HISTORY: Recent cholecystectomy with distal common bile duct filling defect on recent intraoperative cholangiogram FINDINGS: A single image is provided during an ERCP. There is contrast media within the common bile d uct. There is a balloon inflated within the distal common bile duct. Distal CBD is not opacified/fully evaluated. The opacified portions of the CBD are unremarkable. IMPRESSION: Single view during ERCP as detailed above.
[2019-06-20] MEDS ORDERED: Ibuprofen 600 MG TAB PO PRN (16:51)
[2019-06-20] MEDS ORDERED: traMADol HCl 50 MG TAB PO PRN ×3 (16:51→23:48)
[2019-06-20] MEDS ORDERED: Ibuprofen 800 MG TAB PO PRN (16:51)
[2019-06-20] MEDS ORDERED: Acetaminophen 325 MG TAB PO PRN ×2 (16:51)
[2019-06-20] MEDS ORDERED: Ibuprofen 200 MG TAB PO PRN (16:51)
[2019-06-20] MEDS ORDERED: HYDROcodone/Acetaminophen 5/325 mg Tablet PO PRN ×2 (16:51)
--- NOTE | 2019-06-20 17:10 | PDOC.GSPN ---
Surgery Progress Note: Subj - Subjective Narrative: Patient was still having a fair amount of pain this morning when I saw her, which is not surprising since I think that most of her pain is from her common bile duct stone. She has since undergone ERCP with stone extraction. Labs looked okay this morning and repeat labs are ordered for tomorrow. As long she tolerates her diet and her lab work looks good she should be able to go home in the morning. Dr. Hutchins will be rounding on her tomorrow. She continues to have rather low heart rates and blood pressures intermittently but these are minimally symptomatic, and sometimes completely asymptomatic, and her EKG looks normal so I believe that this is a normal variant. She has tolerated anesthesia well without any arrhythmias. Surgery Progress Note: Obj - Vital signs Vital signs: Vital Signs - Most Recent Temp Pulse Resp BP Pulse Ox 97.4 F L 46 L 14 130/72 100 06/20/19 15:45 06/20/19 15:45 06/20/19 15:45 06/20/19 15:45 06/20/19 15:45 Surgery Progress Note: Results - Labs Result Diagrams: 06/20/19 05:00 06/20/19 05:00 Lab results: Laboratory Results - last 24 hr 06/20/19 06/20/19 05:00 05:00 WBC 8.9 RBC 4.20 Hgb 12.6 Hct 36.8 MCV 87.6 MCH 30.0 MCHC 34.2 RDW 11.5 Plt Count 257 MPV 8.5 Neutrophils % 83.5 H Lymphocytes % 14.7 L Monocytes % 1.5 Eosinophils % 0.0 Basophils % 0.2 Neutrophils # 7.4 H Lymphocytes # 1.3 Monocytes # 0.1 L Eosinophils # 0.0 Basophils # 0.0 Sodium 136 Potassium 4.1 Chloride 105 Carbon Dioxide 22 Anion Gap 13 BUN 6 L Creatinine 0.66 Estimated GFR (MDRD) Greater than 90 Glucose 142 H Calcium 8.9 Total Bilirubin 0.5 AST 88 H ALT 145 H Alkaline Phosphatase 147 H Serum Total Protein 6.7 Albumin 3.8 Globulin 2.9 Albumin/Globulin Ratio 1.3 Lipase 11
--- NOTE | 2019-06-20 17:11 | OP ---
DATE OF PROCEDURE: 06/20/2019 DOCUMENTATION SPEC SURGEON: None. PROCEDURES PERFORMED: Endoscopic retrograde cholangiopancreatography with biliary sphincterotomy and balloon extraction of common bile duct stone. INDICATIONS FOR PROCEDURE: Choledocholithiasis, based on positive intraoperative cholangiogram performed yesterday during laparoscopic cholecystectomy. MEDICATIONS: 1. See Anesthesia record. 2. Indomethacin 100 mg per rectum. FINDINGS: After discussion of the risks, benefits, and alternatives of the procedure, informed consent was obtained and witnessed. Pre-endoscopic cardiopulmonary examination was satisfactory. Time-out was performed before sedation was achieved. Sedation was achieved with Anesthesia assistance in the endoscopy unit. The patient was endotracheally intubated under general anesthesia. She was placed in a semiprone position on the fluoroscopy table. A Pentax side-viewing duodenoscope was placed into the oropharynx and passed down the esophagus and beyond the stomach to the second portion of the duodenum under indirect visualization. Indirect views of the stomach and duodenal mucosa all appeared normal. The ampulla was brought into view with the endoscope in the short position. The ampulla appeared normal. Using a triple lumen dome tip sphincterotome and a 0.035 guidewire, we attempted to selectively cannulate the common bile duct. Initially, the guidewire was only passing into the pancreatic duct, but with use of the double wire technique, we were able to get a wire up the common bile duct and into the left intrahepatic system. The guidewire from the pancreatic duct was then removed. A biliary cholangiogram was then performed. This demonstrated some mild dilation of the common bile duct, though no clear filling defect in the distal common bile duct. The decision was made to proceed with sphincterotomy and balloon sweep. A generous biliary sphincterotomy was performed without difficulty. A wire exchange was then performed exchanging the sphincterotome for a 12 mm balloon. Multiple passes were made with the balloon, inflated to 12 mm. We successfully extracted a single yellow pigmented stone from the common bile duct. Occlusion cholangiogram demonstrated no filling defects. Following stone extraction, a final sweep was made to sweep out excess contrast from the bile duct. The working apparatus was then completely withdrawn, and the endoscope was completely withdrawn suctioning out excess air and fluid. The patient tolerated the procedure well. There were no immediate postprocedure complications. Postprocedure fluoroscopic images demonstrated no retroperitoneal or subdiaphragmatic free air. IMPRESSION: 1. Choledocholithiasis, now was successful biliary sphincterotomy and balloon extraction of single yellow pigmented stone from the common bile duct. 2. Otherwise normal exam. RECOMMENDATIONS: 1. Monitor for potential complications. 2. Advance diet as tolerated. Please call back anytime with any questions or concerns. Job ID: [id number]
[2019-06-20] MEDS: Pantoprazole 40 MG VIAL IVP SCH (21:08)
[2019-06-20] MEDS ORDERED: Morphine 2 MG/ML SYRINGE SLOW IVP PRN (23:41)
[2019-06-20] MEDS ORDERED: Morphine 4 MG/ML VIAL SLOW IVP PRN (23:42)
[2019-06-20] MEDS ORDERED: Bisacodyl 10 MG SUPP PR SCH (23:59)
[2019-06-20] MEDS ORDERED: Ketorolac Tromethamine 30 MG/ML VIAL IVP SCH (23:59)
[2019-06-21] MEDS: Acetaminophen 500 MG TAB PO SCH ×5 (00:54→23:24)
[2019-06-21] MEDS: Piperacillin/Tazobactam 3.375 GM in Sodium Chloride 0.9% 100 ML IVPB SCH ×5 (00:54→23:24)
--- NOTE | 2019-06-21 01:33 | PRG ---
DATE OF SERVICE: 06/20/2019 SUBJECTIVE: The patient was seen this evening during rounds. She was sitting up in bed. She reports her pain is 10/10. She is postoperative day 1 after laparoscopic cholecystectomy with intraoperative cholangiogram and postoperative day #0 status post ERCP with sphincterotomy and balloon extraction of common bile duct stone. The patient reports she is voiding. She is having trouble having a bowel movement. She reports she feels like she needs to, but her pain is too much and she is not able to bear down. She is tolerating a clear liquid diet today. Nursing has been giving the patient IV morphine, and she has not received oral pain medications at this time. OBJECTIVE: VITAL SIGNS: Temperature 98.3, pulse 54, respirations 16, oxygen saturation 100% on room air, blood pressure 120/76. GENERAL: Well-appearing young female, sitting up in bed with some moderate distress. PULMONARY: Equal chest rise and fall. No signs of acute respiratory distress. ABDOMEN: Soft, nontender, nondistended. ASSESSMENT: 1. Postoperative day #1 status post laparoscopic cholecystectomy with intraoperative cholangiogram due to cholecystitis and cholelithiasis. 2. She is also postop day 0 after an ERCP with sphincterotomy and balloon extraction of common bile duct stone. 3. History of asthma, preeclampsia, and pyelonephritis during the . PLAN: We will continue the patient's current diet and D5 half-normal saline at 125 an hour. We will discontinue Tylenol No 3 and [place] pain medications. We will start the patient on Tylenol 1 g q.6 hours as well as p.r.n. tramadol 50 or 100 mg q.6 hours. The patient will also receive a one time 30 mg dose of IV Toradol followed by 15 mg q.6 hours x3 days. The patient will continue to have IV morphine p.r.n. for breakthrough pain overnight. We will repeat blood work in the morning. The patient also to receive a suppository tonight. Possibly, we will start the patient on an oral bowel regimen tomorrow. We will also consult walking program to encourage ambulation as much as possible. I have also asked the patient to sit up in the chair as much as possible and use her incentive spirometer. Job ID: [id number]
[2019-06-21 05:25] LABS: #Basophils 0.1 thou/uL (0.0-0.2); #Lymphocytes 2.8 thou/uL (1.20-3.40); #Monocytes 0.6 thou/uL (0.11-0.59); #Neutrophils 5.7 thou/uL (1.40-6.50); %Basophils 0.7 % (0.0-1.0); %Eosinophils 0.1 % (0.0-10.0); %Monocytes 6.9 % (0.0-4.0); %Neutrophils 62.2 % (31.0-61.0); Hemoglobin 11.6 g/dL (12.0-16.0); Mean Corpuscular HGB CONC 34.2 g/dL (32.0-36.0); Mean Corpuscular Volume 87.6 fL (78.0-98.0); Mean Platelet Volume 8.8 fL (7.4-10.4); Platelet Count 252 thou/uL (130-400); RBC Distribution Width 11.5 % (11.5-14.5); Red Blood Cell (RBC) Count 3.89 mill/uL (4.00-5.20); White Blood Cell (WBC) Count 9.2 thou/uL (4.8-10.8)
[2019-06-21 05:58] LABS: ALT (SGPT) 132 U/L (8-55); AST (SGOT) 73 U/L (5-30); Albumin 3.6 g/dL (3.5-5.0); Alkaline Phosphatase 158 U/L (40-100); Anion Gap 11 mmol/L (10-20); BUN (Urea Nitrogen) 8 mg/dL (8.4-21.0); Bilirubin, Total 0.6 mg/dL (0.2-1.2); Calc. Creatinine Clearance 165 mL/min (70-130); Calcium 8.4 mg/dL (7.8-10.44); Carbon Dioxide 26 mmol/L (22-29); Chloride 107 mmol/L (98-107); Estimated GFR-MDRD Greater than 90; Globulin 2.5 g/dL (2.4-3.5); Glucose 135 mg/dL (70-105); Lipase 90 U/L (8-78); Potassium 4.1 mmol/L (3.5-5.1); Protein, Total 6.1 g/dL (6.0-8.3); Sodium 140 mmol/L (136-145)
[2019-06-21] MEDS ORDERED: Ketorolac Tromethamine 30 MG/ML VIAL IVP SCH (06:00)
[2019-06-21] MEDS: D5 1/2 NS w/20 mEq KCL 1,000 ML IV SCH ×4 (06:06→23:34)
[2019-06-21] MEDS: traMADol HCl 50 MG TAB PO PRN ×3 (07:45→20:25)
[2019-06-21] MEDS: Famotidine/PF 20 mg/2ml Vial SLOW IVP SCH ×2 (07:46→20:24)
[2019-06-21] MEDS: Enoxaparin Sodium 40 MG/0.4 ML SYRINGE SC SCH (07:46)
--- NOTE | 2019-06-21 10:23 | PRG ---
DATE OF SERVICE: 06/21/2019 SUBJECTIVE: Ms. Beckham has been clinically stable since ERCP yesterday. She has continued to have generalized abdominal discomfort. She has not had any bowel movement since her surgery. She was given a Dulcolax suppository last night, but did not really have results with this. She has remained afebrile. Opioid pain medications are being decreased today. OBJECTIVE: VITAL SIGNS: Temperature 97.6, pulse 50, blood pressure 105/60, and 98% oxygen saturation on room air. GENERAL: No acute distress, sitting up in bed comfortably. HEART: Regular rate and rhythm. LUNGS: Clear to auscultation bilaterally. ABDOMEN: Bowel sounds are present though somewhat hypoactive throughout all 4 quadrants. The abdomen is soft. Diffuse tenderness to palpation, but no guarding rebound tenderness. EXTREMITIES: No peripheral edema. LABORATORY STUDIES: WBC 9.2, hemoglobin 11.6, platelets 252. Sodium 140, potassium 4.1, BUN 8, creatinine 0.70, glucose 135, total bilirubin 0.6, alkaline phosphatase 158, AST down to 73, ALT down to 132. Lipase is mildly elevated today just above the upper limit of normal at 90. ASSESSMENT/PLAN: 1. Choledocholithiasis, status post successful endoscopic retrograde cholangiopancreatography with biliary sphincterotomy and stone extraction yesterday 06/20/2019. 2. Cholecystitis, status post cholecystectomy, postoperative day 2. 3. Generalized abdominal pain, postoperative. 4. Constipation, postoperative. The patient does have very mild lipase elevation today, but is otherwise clinically stable. She may indeed have developed some mild pancreatitis, but I suspect that her current symptoms are primarily due to postoperative constipation. She may benefit from another suppository today. Agree with weaning down the narcotic pain medications. Dietary advancement per the discretion of the Surgical Service. Please call anytime with questions or concerns, if GI can be of further assistance. Job ID: [id number]
[2019-06-21] MEDS ORDERED: Polyethylene Glycol 3350 17 GM Packet PO SCH (10:30)
[2019-06-21] MEDS: Ondansetron PF 4 MG/2 ML Vial SLOW IVP PRN (13:42)
--- NOTE | 2019-06-21 20:13 | PRG ---
DATE OF SERVICE: 06/21/2019 SUBJECTIVE: I saw Ms. Beckham this morning. She is postoperative day #2, status post laparoscopic cholecystectomy, and postoperative day #1, status post ERCP and common bile duct stone extraction. She reports residual abdominal pain today. She ambulates with minimum difficulty. Appetite is poor. She is passing flatus, but has not had any bowel movement. OBJECTIVE: VITAL SIGNS: This morning include blood pressure 105/60, pulse is 56, respiratory rate is 15, temperature 98.1 degrees Fahrenheit, oxygen saturation is 94% on room air. HEART: Regular rate with mild sinus bradycardia. No murmurs or gallops auscultated. LUNGS: Clear to auscultation bilaterally. Breathing, regular and nonlabored. ABDOMEN: Soft and nondistended with incisional tenderness to palpation. Clearly, has no peritoneal signs on examination. NEUROLOGIC: No focal deficits present. LABORATORY FINDINGS: Include CBC with 9200 white blood cells, hemoglobin and hematocrit are 11.6 and 34.0 respectively, platelet count is 252,000. Metabolic profile; sodium 140, potassium 4.1, chloride is 107, bicarb is 26, BUN is 8, creatinine is 0.70, glucose 135, total bilirubin is 0.6, AST and ALT are stable at 73 and 132 respectively, alkaline phosphatase is also stable at 158. Serum lipase is marginally elevated at 90 post ERCP. IMPRESSION: 1. Postop day #2, status post laparoscopic cholecystectomy, and postop day #1, status post ERCP with common bile duct stone extraction. 2. Mild acute post ERCP pancreatitis, hemodynamically stable. PLAN: 1. I encourage oral intake and increase activity. 2. We will start the patient on some stool softeners. Anticipate discharge within next 24 to 48 hours if pain is well controlled and appetite is improved. Plan has been discussed with the patient and her significant other at bedside. They both indicated understanding of information given. I have answered their questions. Job ID: [id number]
[2019-06-21] MEDS: Senokot S 8.6-50 MG TAB PO SCH (20:24)
[2019-06-21] MEDS: Pantoprazole 40 MG VIAL IVP SCH (20:25)
--- NOTE | 2019-06-22 02:22 | PRG ---
DATE OF SERVICE: 06/21/2019 SUBJECTIVE: The patient was seen this evening during rounds. She was sitting up in bed. Reported abdominal pain and bloating. Has not had a bowel movement yet. Continues to ambulate. Tolerating her diet except she does not like to drink cold things that she reports that hurts her abdomen. OBJECTIVE: VITAL SIGNS: Temperature 98.0, pulse 56, respirations 16, oxygen saturations 99% on room air, and blood pressure 102/65. GENERAL: Well-appearing young female, sitting up in bed with no signs of acute distress. PULMONARY: Equal chest rise and fall. No signs of acute respiratory distress. ASSESSMENT: 1. Postoperative day #2 status post laparoscopic cholecystectomy with intraoperative cholangiogram and postoperative day #1 status post endoscopic retrograde cholangiopancreatography with sphincterotomy and balloon extraction of common bile duct stone. 2. History of asthma, preeclampsia, and pyelonephritis while . PLAN: Continue current diet and pain regimen. Continue IV fluids. Continue to encourage the patient to ambulate as much as possible. The patient to receive a soapsuds enema tonight to try to help have a bowel movement. Continue current p.o. bowel regimen as well. Job ID: [id number]
[2019-06-22] MEDS: Piperacillin/Tazobactam 3.375 GM in Sodium Chloride 0.9% 100 ML IVPB SCH ×4 (05:29→23:03)
[2019-06-22] MEDS: Acetaminophen 500 MG TAB PO SCH ×4 (06:24→23:03)
[2019-06-22] MEDS ORDERED: Morphine 4 MG/ML VIAL IV SCH (06:45)
[2019-06-22] MEDS: Enoxaparin Sodium 40 MG/0.4 ML SYRINGE SC SCH (09:22)
[2019-06-22] MEDS: Famotidine/PF 20 mg/2ml Vial SLOW IVP SCH ×2 (09:22→20:36)
[2019-06-22] MEDS: Polyethylene Glycol 3350 17 GM Packet PO SCH (09:30)
[2019-06-22] MEDS: Senokot S 8.6-50 MG TAB PO SCH ×2 (09:30→20:36)
[2019-06-22] MEDS: D5 1/2 NS w/20 mEq KCL 1,000 ML IV SCH ×4 (09:34→22:16)
[2019-06-22 11:08] LABS: ALT (SGPT) 77 U/L (8-55); AST (SGOT) 21 U/L (5-30); Albumin 3.4 g/dL (3.5-5.0); Alkaline Phosphatase 111 U/L (40-100); Anion Gap 9 mmol/L (10-20); BUN (Urea Nitrogen) 4 mg/dL (8.4-21.0); Band 1 % (5-11); Bilirubin, Total 0.3 mg/dL (0.2-1.2); Calc. Creatinine Clearance 177 mL/min (70-130); Calcium 8.3 mg/dL (7.8-10.44); Carbon Dioxide 27 mmol/L (22-29); Chloride 105 mmol/L (98-107); Eosinophils 3 % (0-10); Estimated GFR-MDRD Greater than 90; Globulin 2.4 g/dL (2.4-3.5); Glucose 96 mg/dL (70-105); Hemoglobin 11.5 g/dL (12.0-16.0); Lipase 30 U/L (8-78); Lymphocytes 70 % (28-48); MDiff Complete? YES; Magnesium 1.7 mg/dL (1.7-2.2); Mean Corpuscular HGB CONC 34.3 g/dL (32.0-36.0); Mean Corpuscular Hemoglobin 30.3 pg (25.0-35.0); Mean Corpuscular Volume 88.2 fL (78.0-98.0); Monocytes 2 % (0-4); Neutrophil 24 % (31-61); Platelet Count 226 thou/uL (130-400); Potassium 3.6 mmol/L (3.5-5.1); Protein, Total 5.8 g/dL (6.0-8.3); RBC Distribution Width 11.6 % (11.5-14.5); Red Blood Cell (RBC) Count 3.81 mill/uL (4.00-5.20); Sodium 137 mmol/L (136-145); White Blood Cell (WBC) Count 6.3 thou/uL (4.8-10.8)
--- NOTE | 2019-06-22 13:01 | PRG ---
DATE OF SERVICE: 06/22/2019 SUBJECTIVE: The patient was seen this morning during rounds, awake, alert, in no distress, sitting up in hospital bed. The patient still has not had a bowel movement. The patient reports not passing any gas at this time. She continues to ambulate frequently. The patient did have some nausea overnight and vomited her medications. OBJECTIVE: VITAL SIGNS: Temperature 97.9, pulse 69, respirations 16, SpO2 of 99% on room air, blood pressure 108/69. GENERAL: Well-appearing young female, sitting up in hospital bed, in no acute distress. PULMONARY: Equal chest rise and fall. Good inspiratory and expiratory effort. Bilateral breath sounds clear. ABDOMEN: Soft, nondistended. Incisional tenderness with palpation. NEUROLOGIC: No focal deficits. LABORATORY AND DIAGNOSTIC DATA: Laboratory pending. No new diagnostic tests. ASSESSMENT: 1. Postop day #3, status post laparoscopic cholecystectomy with interoperative cholangiogram, and postop day #2, status post endoscopic retrograde cholangiopancreatography with sphincterotomy and balloon extraction of common bile duct stone. 2. History of asthma, preeclampsia, pyelonephritis while . PLAN: Continue to have the patient ambulate as much as possible. The patient is still pending a bowel movement. She did receive a soapsuds enema last night. Continue p.o. bowel regimen. We will obtain LFTs, CBC, and chemistry. The patient was examined by Dr. Hutchins during morning rounds. Job ID: [id number]
[2019-06-22] MEDS ORDERED: Ketorolac Tromethamine 30 MG/ML VIAL IVP SCH (14:15)
[2019-06-22 14:51] VITALS: BMI 30.4
[2019-06-22] MEDS: traMADol HCl 50 MG TAB PO PRN ×2 (16:47→23:03)
[2019-06-22] MEDS: Ondansetron PF 4 MG/2 ML Vial SLOW IVP PRN ×2 (17:50→22:13)
[2019-06-22] MEDS: Pantoprazole 40 MG VIAL IVP SCH (20:36)
--- NOTE | 2019-06-23 03:31 | PRG ---
DATE OF SERVICE: 06/22/2019 SUBJECTIVE: The patient was seen this evening during rounds. She was lying in bed. She reported her pain is unchanged, and pain medications are working. She is tolerating her full liquid diet this evening. Continues to ambulate a lot. Reports that she is passing a little bit of gas and that her bowel sounds are very active. OBJECTIVE: VITAL SIGNS: Temperature 98.6, pulse 72, respirations 16, oxygen saturation 98% on room air, and blood pressure 101/68. GENERAL: Well-appearing young female, lying in bed with no signs of acute distress. PULMONARY: Equal chest rise and fall. No signs of acute respiratory distress. ASSESSMENT: Postop day #3, status post laparoscopic cholecystectomy with intraoperative cholangiogram and postop day #2, status post endoscopic retrograde cholangiopancreatography with sphincterotomy and balloon extraction of common bile duct stone. PLAN: Continue current diet and pain regimen. Continue ambulating as much as possible. Continue current pain regimen. We are pending return of bowel function. Dr. He will take over this patient in the morning. Job ID: [id number]
[2019-06-23] MEDS: Acetaminophen 500 MG TAB PO SCH ×2 (05:01→11:04)
[2019-06-23] MEDS: traMADol HCl 50 MG TAB PO PRN ×2 (05:01→11:04)
[2019-06-23] MEDS: Piperacillin/Tazobactam 3.375 GM in Sodium Chloride 0.9% 100 ML IVPB SCH (05:02)
[2019-06-23] MEDS: Famotidine/PF 20 mg/2ml Vial SLOW IVP SCH (08:13)
[2019-06-23] MEDS: Enoxaparin Sodium 40 MG/0.4 ML SYRINGE SC SCH (08:14)
[2019-06-23] MEDS: Polyethylene Glycol 3350 17 GM Packet PO SCH (08:15)
[2019-06-23] MEDS: Senokot S 8.6-50 MG TAB PO SCH (08:16)
[2019-06-23] MEDS: Ondansetron PF 4 MG/2 ML Vial SLOW IVP PRN ×2 (08:17→13:09)
[2019-06-23 11:14] VITALS: BP 101/68; TEMP 98.1
[2019-06-23] MEDS ORDERED: Milk Of Magnesia 30 ML UDCUP PO SCH (11:15)
--- NOTE | 2019-06-23 12:20 | PDOC.GSPN ---
Surgery Progress Note: Subj - Subjective Narrative: Pt is a 18 year old F POD4 for lap cholecystectomy and POD 3 for ERCP w/ spincterotomy and stone removal. Patient reports continued abdominal pain and bloating over night. Was able to pass flatus a couple times last night but non since. No BM since day of admission. Patient reports nausea with 2 episodes of NBNB emesis after trying to consume food. Was unable to hold down miralax due to n/v. Denies fever, chills, dysuria, cp, sob. She reports that she is ambulating in the hallways. Surgery Progress Note: Obj - Vital signs Vital signs: Vital Signs - Most Recent Temp Pulse Resp BP Pulse Ox 98.1 F 68 18 101/68 96 06/23/19 11:09 06/23/19 11:09 06/23/19 11:09 06/23/19 11:09 06/23/19 11:09 - Physical Exam General: moderate distress, well developed, well nourished, other (mild distress 2/2 abdominal pain) Cardiovascular: regular rate and rhythm Respiratory: clear to auscultation Abdomen: positive bowel sounds, tender (non distended, no guarding or rigidity, no rebound tenderness, diffusely TTP) Surgery Progress Note: Results - Labs Result Diagrams: 06/22/19 10:40 06/22/19 10:40 Surgery Progress Note: A/P - Plan Plan: Assessment: 1. s/p lab cholecystectomy w/ IOC POD4 2. s/p ERCP w/ sphincterotomy and stone retrieval 3. Hx of asthma, preeclampsia, pyelonephritis while . Approximately 3 months post Plan: -Patient still with abdominal pain, passing flatus however no BM since presentation. N/V with PO intake. +bowel sounds on exam. Will obtain a KUB to further evaluate and start milk of magnesia -Patient encouraged to continue ambulating in the hallways -LFTs and lipase downtrending Addendum - Physician - Physician Attestation Date/Time: 06/23/19 1411 I personally performed or re-performed the physical examination and medical decision making. I have verified all student documentation or findings, including history, physical exam and/or medical decision making.
[2019-06-23] MEDS: D5 1/2 NS w/20 mEq KCL 1,000 ML IV SCH (13:08)
--- NOTE | 2019-06-23 13:08 | RAD ---
KUB AND UPRIGHT: Date: 06/23/2019 HISTORY: Bloating after cholecystectomy. FINDINGS: The bowel gas pattern appears nonobstructive. I do not appreciate any free air. Surgical clips are se en in the right upper quadrant. No significant bony findings. IMPRESSION: No acute findings. POS: TAMIKO
--- NOTE | 2019-06-23 14:26 | DIS ---
DATE OF ADMISSION: 06/19/2019 DATE OF DISCHARGE: 06/23/2019 ADMIT DIAGNOSES: Cholecystitis, choledocholithiasis. DISCHARGE DIAGNOSES: Cholecystitis, choledocholithiasis. PROCEDURES PERFORMED: Laparoscopic cholecystectomy by Neri. ERCP by JEROD. CONDITION ON DISCHARGE: Improved. STAFF: Neri. HOSPITAL COURSE: Postop, the patient had bloating and constipation. On the day of discharge, she is tolerating diet. She is discharged home. She will follow up with Dr. He in 2 weeks. Prescriptions for [place] and Zofran left on the chart. Job ID: [id number]
== END 2019-06-23 17:20 | disposition home or self-care (01) | DRG 417 ==
LOC: ERS 22:40 → SJJU 06-19 04:05
PROVIDERS: ADMIT Surgery; ATTEND Surgery
PROC: 0FT44ZZ Resection of Gallbladder, Percutaneous Endoscopic Approach (ICD-10-PCS; principal; 2019-06-19)
PROC: BF131ZZ Fluoroscopy of Gallbladder and Bile Ducts using Low Osmolar Contrast (ICD-10-PCS; 2019-06-19)
PROC: 0F798ZZ Dilation of Common Bile Duct, Via Natural or Artificial Opening Endoscopic (ICD-10-PCS; 2019-06-20)
PROC: 0FC98ZZ Extirpation of Matter from Common Bile Duct, Via Natural or Artificial Opening Endoscopic (ICD-10-PCS; 2019-06-20)
DX: K80.42 Calculus of bile duct with acute cholecystitis without obstruction (principal); K85.90 Acute pancreatitis without necrosis or infection, unspecified; K59.00 Constipation, unspecified; J45.909 Unspecified asthma, uncomplicated; Z88.2 Allergy status to sulfonamides; Z90.49 Acquired absence of other specified parts of digestive tract
CPT/HCPCS: 36415; 47532; 74019; 74330; 76705; 80053; 81003; 81015; 81025; 83690; 83735; 84100; 85007; 85025; 85027; 88304; 93005; 93010; 96365; 96375; C1769; C9113; J1100; J1200; J1610; J1650; J1885; J2001; J2270; J2310; J2405; J2543; J2704; J3010; J3490; Q0162; S0020; S0028

== ENCOUNTER 2020-03-01 04:00 | Observation (INO) | payer OTHER ==
[2020-03-01 04:34] VITALS: BP 101/62; TEMP 98; BMI 34.3
[2020-03-01] MEDS ORDERED: hydrALAZINE 20 MG/ML VIAL SLOW IVP PRN ×2 (04:52→07:58)
[2020-03-01] MEDS ORDERED: Butorphanol Tartrate 1 MG/ML VIAL SLOW IVP PRN (04:53)
[2020-03-01] MEDS ORDERED: Butorphanol Tartrate 1 MG/ML VIAL ONE (04:59)
[2020-03-01] MEDS ORDERED: Lactated Ringer's 1,000 ML IV SCH (05:00)
--- NOTE | 2020-03-01 05:02 | PDOC.LDHP ---
Labor and Delivery H&P Chief complaint: contractions HPI: 19 y/o at 33w6d, patient of Dr. Morocho, presents with constant low back pain and ctx since last night. She reports the pain started yesterday but became much worse around 0300 so she came in to be evaluated. Pain worse when the baby moves. She has had increased discharge. Has had spotting throughout the . Denies LOF. +FM ROS neg for HEENT, cv, pulm, gi, gu, neuro, psych, skin, musculoskeletal or constitutional symptoms other than mentioned above. OB History Details: 1 prior on 03/18/19 Current complications: none Past Medical History: Anemia, asthma, migraines Current medications: pre- vitamins Previous surgical history: cholecystectomy, other (wisdom teeth, tonsils & adenoids) Allergies/Adverse Reactions: Allergies Allergy/AdvReac Type Severity Reaction Status Date / Time Sulfa (Sulfonamide Allergy Severe Anaphylaxis Verified 03/01/20 04:23 Antibiotics) Social history: none - Physical Exam Vital signs reviewed and normal: yes General: NAD, breathing through contractions Lungs: nonlabored breathing Abdomen: gravid Extremeties: no edema FHT: category 1 (125, mod variability, + accels, no decels) [place] contractions every: 3 mins - Vaginal Exam cm dilated: 1 (2-3 on recheck) Effacement: 50% Station: -2 - OB Labs Blood type: A RH: positive - Assessment L&D Assessment: labor - Plan Plan: observation in L&D -: Steroids for lung maturity. First dose this morning. Will give tocolysis if needed. Dr. Morocho notified.
[2020-03-01] MEDS ORDERED: Ondansetron PF 4 MG/2 ML Vial ONE (06:10)
[2020-03-01] MEDS: Betamet Acet/Betamet Na Ph 30 MG/5 ML VIAL IM SCH (07:30)
[2020-03-01] MEDS ORDERED: Acetaminophen 500 MG TAB PO PRN (07:58)
[2020-03-01] MEDS ORDERED: Promethazine HCl 25 MG/ML VIAL IM PRN (07:58)
[2020-03-01] MEDS ORDERED: Ondansetron PF 4 MG/2 ML Vial IVP PRN (07:58)
[2020-03-01 08:01] LABS: Bacteria/HPF None Seen HPF (None Seen); Bilirubin Negative (Negative); Blood, Urine Negative (Negative); Clarity Clear (Clear); Glucose, Urine (Dipstick) Normal (Negative); Ketone, Urine Trace mg/dL (Negative); Leukocyte Negative Leu/uL (Negative); Nitrite Negative (Negative); Protein, Urine (Dipstick) 30 mg/dL (Neg-Trace); RBC/HPF 0-3 HPF (0-3); Squamous Epithelial 0-3 HPF (0-3); WBC/HPF 0-3 HPF (0-3)
[2020-03-01 08:04] LABS: Urine Culture Reflex No No
[2020-03-01] MEDS: Lactated Ringer's 1,000 ML IV SCH ×2 (08:55→17:23)
[2020-03-01 09:42] LABS: Hemoglobin 10.9 g/dL (12.0-16.0); Mean Corpuscular HGB CONC 33.9 g/dL (32.0-36.0); Mean Corpuscular Hemoglobin 30.1 pg (25.0-35.0); Mean Corpuscular Volume 88.9 fL (78.0-98.0); Mean Platelet Volume 8.3 fL (7.4-10.4); Platelet Count 211 thou/uL (130-400); RBC Distribution Width 11.8 % (11.5-14.5); Red Blood Cell (RBC) Count 3.61 mill/uL (4.00-5.20); White Blood Cell (WBC) Count 9.4 thou/uL (4.8-10.8)
[2020-03-01 10:36] LABS: HBSAg Index 0.15 S/CO (0-0.99); Hep B Surf Ag Non-Reactive S/CO (NonReactive)
[2020-03-01 10:37] LABS: Syphilis Antibody Nonreactive (Nonreactive); Syphilis Antibody Index 0.04 S/CO (<1.00 Non-Reactive)
[2020-03-01] MEDS: Butorphanol Tartrate 1 MG/ML VIAL SLOW IVP PRN ×2 (10:50→23:31)
[2020-03-01] MEDS ORDERED: metroNIDAZOLE 500 MG TAB PO SCH (12:45)
[2020-03-01] MEDS: metroNIDAZOLE 500 MG TAB PO SCH (21:36)
[2020-03-02] MEDS: Lactated Ringer's 1,000 ML IV SCH (02:11)
[2020-03-02] MEDS: Betamet Acet/Betamet Na Ph 30 MG/5 ML VIAL IM SCH (07:49)
--- NOTE | 2020-03-02 09:01 | PDOC.LDPN ---
Labor & Delivery Progress Note - Subjective Subjective: comfortable - Objective Vital signs reviewed and normal: yes General: resting FHT: category 1 - Assessment (1) 33 weeks gestation of Code(s): Z3A.33 - 33 WEEKS GESTATION OF Current Visit: Yes Status: Acute (2) contractions Code(s): O47.9 - FALSE LABOR, UNSPECIFIED Current Visit: Yes Status: Acute (3) Bacterial vaginal infection Code(s): N76.0 - ACUTE VAGINITIS; B96.89 - OTH BACTERIAL AGENTS THE CAUSE OF DISEASES CLASSD [id number] Current Visit: Yes Status: Acute Plan: other -: HD2 Doing well, no contractions overnight or this AM. Treating for BV, 2nd dose of Celestone given. Pt stable, plan for DC today.
[2020-03-02] MEDS: metroNIDAZOLE 500 MG TAB PO SCH (09:49)
--- NOTE | 2020-03-03 03:28 | DIS ---
DATE OF ADMISSION: 03/01/2020 DATE OF DISCHARGE: 03/02/2020 ADMISSION DIAGNOSIS: contractions at 33 weeks and 6 days. DISCHARGE DIAGNOSIS: Resolution of contractions and bacterial vaginosis diagnosed. HOSPITAL COURSE: Ms. Coleen Beckham presented on 03/01/2020 with complaints of uterine contractions. She was noted to have uterine irritability on initial evaluation in triage. She had multiple cervix exams by the overnight nursing staff with unclear picture of cervical change or no cervical change. Celestone for lung maturity was given and she was admitted for observation. At the time of her admission, a vaginitis panel was collected, which later resulted bacterial vaginosis. During her overnight admission, her contractions were rare. She reported good movement. No leakage of fluid or vaginal bleeding. On hospital day number two, she was evaluated with no uterine contractions reported overnight. For this reason, her cervix was not rechecked and there was no clinical concerns for labor. The patient was discharged home in good condition with plans to follow up in my office tomorrow for her routine OB visit. Flagyl 500 mg twice a day to complete seven days was prescribed and sent to her pharmacy. The patient was given strict ER warnings. Job ID: [id number] MTDD
== END 2020-03-02 09:52 | disposition home or self-care (01) ==
LOC: L&D/OP 04:00 → L&D 07:58
PROVIDERS: ADMIT Obstetrics & Gynecology; ATTEND Obstetrics & Gynecology
DX: O60.03 Preterm labor without delivery, third trimester (principal); O23.593 Infection of other part of genital tract in pregnancy, third trimester; B96.89 Other specified bacterial agents as the cause of diseases classified elsewhere; Z3A.33 33 weeks gestation of pregnancy; Z79.899 Other long term (current) drug therapy; Z88.2 Allergy status to sulfonamides
CPT/HCPCS: 36415; 81001; 85027; 86780; 86850; 86900; 86901; 87340; 87480; 87510; 87660; 96372; 96374; 96375; 99285; G0378; J0595; J0702; J2405; J2550

== ENCOUNTER 2020-03-20 23:36 | Day surgery (SDC) | payer OTHER ==
[2020-03-21] MEDS ORDERED: hydrALAZINE 20 MG/ML VIAL SLOW IVP PRN (00:38)
--- NOTE | 2020-03-21 00:43 | PDOC.LDHP ---
Labor and Delivery H&P Chief complaint: loss of fluid HPI: 19 y/o @ 36.3 wks present to L&D with suspected LOF. Pt states that @ 21:15 last night she had LOF clear, after urinating. She has felt "damp," since then. Has had slight nausea. + vaginal pressure and constant back pain. Feels few ctx that are not consistent ~ Q10 min and not very painful to her. Denies vag bleeding, or abnormal vag d/c. Had BV treated with flagyl about a week ago. has one more dose left tomorrow morning. States her vag d.c is back to normal. Reports good movments. + hemorrhoids. Denies [place], vomiting, abd pain. PCP: Dr. Morocho Current gestational age (weeks): 36 (36.6) Due date: 04/13/20 Grav: 2 Para: 1 OB History Details: 1) at term, no complications 2) @ 36.6 weeks no known complications with Current complications: none Past Medical History: no known medical problems Current medications: pre- vitamins Previous surgical history: cholecystectomy, other (tonsilectomy and adenoidectomy) Allergies/Adverse Reactions: Allergies Allergy/AdvReac Type Severity Reaction Status Date / Time Sulfa (Sulfonamide Allergy Severe Anaphylaxis Verified 03/01/20 04:23 Antibiotics) Social history: none - Physical Exam Vital signs reviewed and normal: yes General: NAD, resting, breathing through contractions Heart: RRR Lungs: CTAB Abdomen: gravid Extremeties: no edema FHT: category 1 (135 baseline with acels present and no decels), variability present [place] contractions every: irritability vs ctx Q3-4 min - Vaginal Exam cm dilated: 3 Effacement: 75% Station: -2 - OB Labs Additional Labs: no history on the unit. will seek if keeping. - Assessment 19 y/o @ 36.6 wks here for suspected ROM 1. sIUP @ 36.6 wks - continuous FHT and TOCO - cat 1 strip 2. Subjective clear fluid leaking per vagina - Amnisure ordered - SSE pedning - no gross leaking of fluid on SVE. Dispo: obs for workup of late pre-term PROM
[2020-03-21 01:30] LABS: Amnisure Internal Control QC ACCEPTABLE (ACCEPTABLE); Amnisure Test No Membranes Rupture (No Rupture)
--- NOTE | 2020-03-21 01:40 | PDOC.BPN ---
<Keeley Gibbs - Last Filed: 03/21/20 01:45> - Brief Progress Note SSE: no pooling of fluid from finalized os on valsalva. SVE: @ 0130, darin / Amnisure negative Ctx irregular and no consistent pattern on TOCO Dispo plan: home with return precautions of labor. Frequent, regular ctx, LOF, vag bleeding or decreased movements <Adam Boss - Last Filed: 03/21/20 01:47> - Brief Progress Note OBGYN Faculty Note: Patient seen at bedside. NST reviewed. CX unchanged. OK for DC home. SSE negative; neg
== END 2020-03-21 02:26 | disposition home or self-care (01) ==
LOC: L&D/OP 23:36
PROVIDERS: ATTEND Obstetrics & Gynecology
DX: O99.891 Other specified diseases and conditions complicating pregnancy (principal); N89.8 Other specified noninflammatory disorders of vagina; O99.613 Diseases of the digestive system complicating pregnancy, third trimester; K64.9 Unspecified hemorrhoids; O23.593 Infection of other part of genital tract in pregnancy, third trimester; B96.89 Other specified bacterial agents as the cause of diseases classified elsewhere; Z3A.36 36 weeks gestation of pregnancy; Z88.2 Allergy status to sulfonamides
CPT/HCPCS: 84112; 99284

== ENCOUNTER 2020-03-31 09:12 | Outpatient (CLI) | payer OTHER ==
[2020-03-31 17:06] LABS: SARS-CoV-2 MS2 Positive; SARS-CoV-2 N Gene Negative; SARS-CoV-2 S Gene Negative; SARS-CoV-2 by NAA Not Detected (NotDetected); SARS-CoV-2 orf1ab Negative
== END 2020-03-31 09:13 | disposition home or self-care (01) ==
LOC: LABBT 09:12
PROVIDERS: ATTEND Obstetrics & Gynecology
DX: Z01.812 Encounter for preprocedural laboratory examination (principal); Z20.828 Contact with and (suspected) exposure to other viral communicable diseases
CPT/HCPCS: 87635; U0003

== ENCOUNTER 2020-04-07 05:30 | Inpatient (IN) | payer OTHER ==
[2020-04-07] MEDS ORDERED: Lactated Ringer's 1,000 ML IV SCH (05:45)
[2020-04-07] MEDS ORDERED: NS / Oxytocin 40 units/1000ml 1,000 ML IV PRN (05:45)
[2020-04-07] MEDS ORDERED: Ibuprofen 800 MG TAB PO PRN (05:45)
[2020-04-07] MEDS ORDERED: HYDROcodone/Acetaminophen 5/325 mg Tablet PO PRN ×3 (05:45→11:11)
[2020-04-07] MEDS ORDERED: Bupivacaine 0.5% 20 ML, fentaNYL Citrate/PF 400 MCG in Sodium Chloride 0.9% 72 ML EPIDURAL SCH (05:45)
[2020-04-07] MEDS ORDERED: Butorphanol Tartrate 1 MG/ML VIAL SLOW IVP PRN (05:45)
[2020-04-07] MEDS ORDERED: Lidocaine 1% (PF) 30 ML VIAL SC PRN (05:45)
[2020-04-07] MEDS ORDERED: Ondansetron PF 4 MG/2 ML Vial IVP PRN ×3 (05:45→11:11)
[2020-04-07] MEDS ORDERED: Promethazine HCl 25 MG/ML VIAL IM PRN ×2 (05:45→06:16)
[2020-04-07] MEDS ORDERED: NS w/ Oxytocin 10 units 500 ML IV SCH ×2 (05:45)
[2020-04-07] MEDS ORDERED: hydrALAZINE 20 MG/ML VIAL SLOW IVP PRN ×2 (05:45→11:11)
[2020-04-07] MEDS ORDERED: NS / Oxytocin 40 units/1000ml 1,000 ML ONE (05:53)
[2020-04-07 06:14] VITALS: BMI 34.3
[2020-04-07] MEDS ORDERED: Acetaminophen 325 MG TAB PO PRN (06:16)
[2020-04-07] MEDS ORDERED: ePHEDrine 50 MG/ML VIAL SLOW IVP PRN (06:16)
[2020-04-07] MEDS ORDERED: Lactated Ringer's 500 ML IV PRN (06:16)
[2020-04-07] MEDS ORDERED: Naloxone HCl 0.4 mg/ml Vial IVP PRN ×2 (06:16)
[2020-04-07] MEDS ORDERED: diphenhydrAMINE 50 MG/ML VIAL IVP PRN (06:16)
[2020-04-07 06:17] LABS: Hemoglobin 11.7 g/dL (12.0-16.0); Mean Corpuscular HGB CONC 33.7 g/dL (32.0-36.0); Mean Corpuscular Hemoglobin 29.1 pg (25.0-35.0); Mean Corpuscular Volume 86.2 fL (78.0-98.0); Mean Platelet Volume 9.2 fL (7.4-10.4); Platelet Count 221 thou/uL (130-400); RBC Distribution Width 12.5 % (11.5-14.5); Red Blood Cell (RBC) Count 4.03 mill/uL (4.00-5.20); White Blood Cell (WBC) Count 13.9 thou/uL (4.8-10.8)
[2020-04-07] MEDS ORDERED: Communication Order-Pharmacy FS SCH (06:30)
[2020-04-07] MEDS ORDERED: Fentanyl 4 mcg/Bupivacaine 0.1% Cassette 100 ML EPIDURAL SCH (06:30)
[2020-04-07 06:54] LABS: Syphilis Antibody Nonreactive (Nonreactive); Syphilis Antibody Index 0.04 S/CO (<1.00 Non-Reactive)
[2020-04-07 06:55] LABS: HBSAg Index 0.17 S/CO (0-0.99); Hep B Surf Ag Non-Reactive S/CO (NonReactive)
--- NOTE | 2020-04-07 09:54 | PDOC.OPDEL ---
OB Operative/Delivery Note Delivery Dr/Surgeon: Rashawn Pre-Delivery Diagnosis: active labor Procedure/Post Delivery Dx: spontaneous vaginal delivery Weeks gestation: 39 Anesthesia: epidural - Findings A Sex: male - 1 min: 8 - 5 min: 9 - Additional Findings/Plan Placenta delivered: spontaneous Repaired Obstetrical Laceration: none Estimated blood loss: 80ml Post delivery plan: routine recovery
[2020-04-07] MEDS ORDERED: Bupivacaine/Epinephrine 0.5% 10 ML VIAL ONE (10:10)
[2020-04-07] MEDS ORDERED: Benzocaine-Menthol 82.5 ML CAN TOP PRN (11:11)
[2020-04-07] MEDS ORDERED: Preparation H Ointment 28 GM TUBE PR PRN (11:11)
[2020-04-07] MEDS ORDERED: diphenhydrAMINE 25 MG CAP PO PRN (11:11)
[2020-04-07] MEDS ORDERED: NS / Oxytocin 40 units/1000ml 1,000 ML IV SCH (11:11)
[2020-04-07] MEDS ORDERED: Milk Of Magnesia 30 ML UDCUP PO PRN (11:11)
[2020-04-07] MEDS ORDERED: Bisacodyl 10 MG SUPP PR PRN (11:11)
[2020-04-07] MEDS: HYDROcodone/Acetaminophen 5/325 mg Tablet PO PRN ×2 (12:24→23:58)
[2020-04-07] MEDS: Ibuprofen 800 MG TAB PO SCH ×2 (13:30→20:56)
[2020-04-07] MEDS: Lanolin Ointment 7 GM TUBE TOP PRN (13:34)
[2020-04-07] MEDS: Ferrous Sulfate 325 MG TAB PO SCH (16:48)
[2020-04-07] MEDS: Docusate Calcium (SURFAK) 240 MG CAP PO SCH (20:56)
[2020-04-08] MEDS: Ibuprofen 800 MG TAB PO SCH ×2 (05:24→13:58)
--- NOTE | 2020-04-08 07:59 | PDOC.PP ---
Post Progress Note Post Day #: 1 Subjective: doing well, breast feeding, low back discomfort, normal lochia PO intake tolerated: yes Flatus: yes Ambulation: yes Vital Signs (12 hours) Temp Pulse Resp BP Pulse Ox 04/08/20 05:27 97.6 F 63 18 97/51 L 04/07/20 23:52 97.9 F 84 18 112/58 L 04/07/20 20:27 97.7 F 68 18 115/57 L 98 Weight Weight 200 lb - Physical Examination General: NAD Respiratory: non-labored breathing Abdominal: no distention Fundus firm & at: below umb Psychiatric: A&Ox3, normal affect Result Diagrams: 04/07/20 05:49 Additional Labs: Post Labs Hep Bs Antigen Non-Reactive S/CO (NonReactive) 04/07/20 05:49 Blood Type A POSITIVE 04/07/20 05:49 (1) Vaginal delivery Code(s): O80 - ENCOUNTER FOR FULL-TERM UNCOMPLICATED DELIVERY Status: Acute - Assessment/Plan PPD1 doing well, desires DC today. Good support from mother.
[2020-04-08 08:32] VITALS: BP 100/51; TEMP 98
[2020-04-08] MEDS: Lanolin Ointment 7 GM TUBE TOP PRN (08:42)
[2020-04-08] MEDS: Ferrous Sulfate 325 MG TAB PO SCH (08:42)
[2020-04-08] MEDS: Docusate Calcium (SURFAK) 240 MG CAP PO SCH (08:42)
[2020-04-08] MEDS ORDERED: Prenatal Vitamin 1 TAB PO SCH (09:00)
[2020-04-08] MEDS ORDERED: Adacel (T-DAP) 0.5 ML SYRINGE IM ONE (11:11)
== END 2020-04-08 16:15 | disposition home or self-care (01) | DRG 807 ==
LOC: L&D 05:31 → 3SW 12:20
PROVIDERS: ADMIT Obstetrics & Gynecology; ATTEND Obstetrics & Gynecology
PROC: 10E0XZZ Delivery of Products of Conception, External Approach (ICD-10-PCS; principal; 2020-04-07)
PROC: 10907ZC Drainage of Amniotic Fluid, Therapeutic from Products of Conception, Via Natural or Artificial Opening (ICD-10-PCS; 2020-04-07)
DX: O80 Encounter for full-term uncomplicated delivery (principal); Z37.0 Single live birth; Z3A.39 39 weeks gestation of pregnancy; Z88.2 Allergy status to sulfonamides
CPT/HCPCS: 36415; 51702; 85027; 86780; 86850; 86900; 86901; 87340; J3010; J3490

== ENCOUNTER 2020-11-05 12:43 | Emergency (ER) | payer OTHER ==
[2020-11-05 13:33] LABS: #Eosinphils 0.3 thou/uL (0.0-0.7); #Monocytes 0.5 thou/uL (0.11-0.59); #Neutrophils 4.5 thou/uL (1.40-6.50); %Basophils 0.1 % (0.0-1.0); %Eosinophils 3.1 % (0.0-10.0); %Lymphocytes 36.3 % (21.0-51.0); %Neutrophils 54.5 % (42.0-75.0); Hemoglobin 14.7 g/dL (12.0-16.0); Mean Corpuscular HGB CONC 34.9 g/dL (32.0-36.0); Mean Corpuscular Hemoglobin 29.6 pg (27.0-31.0); Mean Corpuscular Volume 84.7 fL (78.0-98.0); Platelet Count 282 thou/uL (130-400); RBC Distribution Width 12.1 % (11.5-14.5); Red Blood Cell (RBC) Count 4.95 mill/uL (4.20-5.40); White Blood Cell (WBC) Count 8.2 thou/uL (4.8-10.8)
[2020-11-05 13:43] LABS: BHCG - Serum Negative (NEGATIVE); Pregs Control Background? CLEAR/WHITE (CLR/WHITE); Pregs Control Bar Appear? YES (CONTROL BAR)
[2020-11-05 13:55] LABS: ALT (SGPT) 15 U/L (8-55); AST (SGOT) 15 U/L (5-34); Albumin 4.5 g/dL (3.5-5.0); Alkaline Phosphatase 91 U/L (40-110); Anion Gap 14 mmol/L (10-20); BUN (Urea Nitrogen) 16 mg/dL (7.0-18.7); Bilirubin, Total 0.6 mg/dL (0.2-1.2); Calc. Creatinine Clearance 0 mL/min (70-130); Calcium 9.7 mg/dL (7.8-10.44); Carbon Dioxide 21 mmol/L (22-29); Chloride 107 mmol/L (98-107); Globulin 3.4 g/dL (2.4-3.5); Glucose 92 mg/dL (70-105); Lipase 18 U/L (8-78); Potassium 3.8 mmol/L (3.5-5.1); Protein, Total 7.9 g/dL (6.0-8.3); Sodium 138 mmol/L (136-145)
[2020-11-05] MEDS ORDERED: Ketorolac Tromethamine 30 MG/ML VIAL ONE (14:23)
== END 2020-11-05 14:43 | disposition home or self-care (01) ==
LOC: ERS 12:43
DX: S09.90XA Unspecified injury of head, initial encounter (principal); M25.512 Pain in left shoulder; M25.572 Pain in left ankle and joints of left foot; M79.642 Pain in left hand; M54.2 Cervicalgia; R10.9 Unspecified abdominal pain; J45.909 Unspecified asthma, uncomplicated; V89.2XXA Person injured in unspecified motor-vehicle accident, traffic, initial encounter
CPT/HCPCS: 36415; 70450; 71260; 72125; 74177; 80053; 83690; 84703; 85025; 93005; 96374; J1885

== ENCOUNTER 2021-05-30 07:07 | Emergency (ER) | payer OTHER ==
[2021-05-30] MEDS ORDERED: Albuterol 200 PUFF (6.7GM INHALER) ONE (07:55)
== END 2021-05-30 08:41 | disposition home or self-care (01) ==
LOC: ERS 07:07
DX: J20.9 Acute bronchitis, unspecified (principal); J45.909 Unspecified asthma, uncomplicated
CPT/HCPCS: 71045; 94664

== ENCOUNTER 2022-07-01 15:35 | Emergency (ER) | payer MEDICAID ==
[2022-07-01 16:13] LABS: #Eosinphils 0.5 thou/uL (0.0-0.7); #Lymphocytes 2.8 thou/uL (1.20-3.40); #Monocytes 0.5 thou/uL (0.11-0.59); %Basophils 0.6 % (0.0-1.0); %Eosinophils 6.7 % (0.0-10.0); %Lymphocytes 35.7 % (21.0-51.0); %Monocytes 6.5 % (0.0-10.0); %Neutrophils 50.5 % (42.0-75.0); Hemoglobin 13.8 g/dL (12.0-16.0); Mean Corpuscular Hemoglobin 31.7 pg (27.0-31.0); Mean Corpuscular Volume 88.1 fl (78.0-98.0); Mean Platelet Volume 7.5 fL (7.4-10.4); Platelet Count 314 10x3/uL (130-400); RBC Distribution Width 11.1 % (11.5-14.5); Red Blood Cell (RBC) Count 4.35 mill/uL (4.20-5.40); White Blood Cell (WBC) Count 7.9 10x3/uL (4.8-10.8)
[2022-07-01 16:41] LABS: ALT (SGPT) 12 U/L (8-55); AST (SGOT) 13 U/L (5-34); Albumin 3.8 g/dL (3.5-5.0); Alkaline Phosphatase 79 U/L (40-110); Anion Gap 12 mmol/L (10-20); BUN (Urea Nitrogen) 14 mg/dL (7.0-18.7); Bilirubin, Total 0.2 mg/dL (0.2-1.2); Calc. Creatinine Clearance 0 mL/min (70-130); Calcium 8.9 mg/dL (7.8-10.44); Carbon Dioxide 22 mmol/L (22-29); Chloride 107 mmol/L (98-107); Estimated GFR 74; Globulin 3.4 g/dL (2.4-3.5); Glucose 91 mg/dL (70-105); Lipase 31 U/L (8-78); Potassium 3.7 mmol/L (3.5-5.1); Protein, Total 7.2 g/dL (6.0-8.3); Sodium 137 mmol/L (136-145)
[2022-07-01 17:03] LABS: Bacteria/HPF None Seen HPF (None Seen); Bilirubin Negative (Negative); Blood, Urine Negative (Negative); Clarity Clear (Clear); Glucose, Urine (Dipstick) Normal (Negative); Ketone, Urine Negative (Negative); Leukocyte 25 Leu/uL (Negative); Nitrite Negative (Negative); Protein, Urine (Dipstick) 10 mg/dL (Neg-Trace); RBC/HPF 0-3 HPF (0-3); Specific Gravity, Urine 1.032 (1.002-1.036); Squamous Epithelial 0-3 HPF (0-3); Urobilinogen Normal mg/dL (Less than 2); WBC/HPF 0-3 HPF (0-3); pH, Urine 6.5 (5.0-9.0)
[2022-07-01] MEDS ORDERED: Acetaminophen 500 MG TAB ONE (18:12)
== END 2022-07-01 18:42 | disposition home or self-care (01) ==
LOC: ERS 15:35
DX: O20.8 Other hemorrhage in early pregnancy (principal); O26.891 Other specified pregnancy related conditions, first trimester; Z3A.01 Less than 8 weeks gestation of pregnancy
CPT/HCPCS: 36415; 76856; 80053; 81003; 81015; 83690; 84702; 85025; 86900; 86901

== ENCOUNTER 2022-07-06 10:51 | Emergency (ER) | payer BC, MEDICAID ==
[2022-07-06 11:43] LABS: #Eosinphils 0.3 thou/uL (0.0-0.7); #Lymphocytes 2.3 thou/uL (1.20-3.40); #Monocytes 0.4 thou/uL (0.11-0.59); #Neutrophils 3.5 thou/uL (1.40-6.50); %Basophils 0.2 % (0.0-1.0); %Lymphocytes 35.3 % (21.0-51.0); %Monocytes 5.6 % (0.0-10.0); %Neutrophils 53.9 % (42.0-75.0); Hemoglobin 13.9 g/dL (12.0-16.0); Mean Corpuscular HGB CONC 34.3 g/dL (32.0-36.0); Mean Corpuscular Hemoglobin 30.4 pg (27.0-31.0); Mean Corpuscular Volume 88.5 fl (78.0-98.0); Mean Platelet Volume 7.7 fL (7.4-10.4); Platelet Count 294 10x3/uL (130-400); RBC Distribution Width 11.5 % (11.5-14.5); Red Blood Cell (RBC) Count 4.58 mill/uL (4.20-5.40); White Blood Cell (WBC) Count 6.6 10x3/uL (4.8-10.8)
[2022-07-06 11:55] LABS: BHCG - Serum POSITIVE (NEGATIVE); Pregs Control Background? CLEAR/WHITE (CLR/WHITE); Pregs Control Bar Appear? YES (CONTROL BAR)
[2022-07-06 11:58] LABS: Anion Gap 12 mmol/L (10-20); BUN (Urea Nitrogen) 10 mg/dL (7.0-18.7); Calc. Creatinine Clearance 0 mL/min (70-130); Calcium 9.4 mg/dL (7.8-10.44); Carbon Dioxide 23 mmol/L (22-29); Chloride 109 mmol/L (98-107); Estimated GFR 121; Glucose 101 mg/dL (70-105); Potassium 3.8 mmol/L (3.5-5.1); Sodium 140 mmol/L (136-145)
[2022-07-06 12:24] LABS: Bacteria/HPF None Seen HPF (None Seen); Bilirubin Negative (Negative); Blood, Urine 3+ (Negative); Clarity Clear (Clear); Glucose, Urine (Dipstick) Normal (Negative); Ketone, Urine Negative (Negative); Leukocyte Negative Leu/uL (Negative); Nitrite Negative (Negative); Protein, Urine (Dipstick) Negative (Neg-Trace); RBC/HPF 0-3 HPF (0-3); Squamous Epithelial 0-3 HPF (0-3); Urobilinogen Normal mg/dL (Less than 2); WBC/HPF 0-3 HPF (0-3); pH, Urine 5.5 (5.0-9.0)
[2022-07-06] MEDS ORDERED: Acetaminophen 500 MG TAB ONE (14:58)
== END 2022-07-06 17:04 | disposition home or self-care (01) ==
LOC: ERS 10:51
DX: O00.90 Unspecified ectopic pregnancy without intrauterine pregnancy (principal); Z3A.00 Weeks of gestation of pregnancy not specified
CPT/HCPCS: 36415; 76856; 80048; 81003; 81015; 84702; 84703; 85025; 86900; 86901; 96372; J9250

== ENCOUNTER 2022-07-10 05:25 | Emergency (ER) | payer BC, MEDICAID ==
[2022-07-10] MEDS ORDERED: Ondansetron PF 4 MG/2 ML Vial ONE (05:58)
[2022-07-10] MEDS ORDERED: Morphine 4 MG/ML VIAL ONE (05:58)
[2022-07-10 06:09] LABS: #Basophils 0.1 thou/uL (0.0-0.2); #Eosinphils 0.5 thou/uL (0.0-0.7); #Lymphocytes 3.3 thou/uL (1.20-3.40); #Monocytes 0.4 thou/uL (0.11-0.59); #Neutrophils 3.3 thou/uL (1.40-6.50); %Basophils 0.7 % (0.0-1.0); %Lymphocytes 43.7 % (21.0-51.0); %Monocytes 5.3 % (0.0-10.0); %Neutrophils 43.3 % (42.0-75.0); Hemoglobin 12.9 g/dL (12.0-16.0); Mean Corpuscular HGB CONC 34.1 g/dL (32.0-36.0); Mean Corpuscular Hemoglobin 30.3 pg (27.0-31.0); Mean Corpuscular Volume 88.7 fl (78.0-98.0); Mean Platelet Volume 7.7 fL (7.4-10.4); Platelet Count 256 10x3/uL (130-400); RBC Distribution Width 11.4 % (11.5-14.5); Red Blood Cell (RBC) Count 4.24 mill/uL (4.20-5.40); White Blood Cell (WBC) Count 7.7 10x3/uL (4.8-10.8)
[2022-07-10 06:20] LABS: INR-International Normal Ratio 0.9; PTT 26.8 sec (22.9-36.1); Prothrombin Time 12.6 sec (12.0-14.7)
[2022-07-10 06:28] LABS: ALT (SGPT) 42 U/L (8-55); AST (SGOT) 25 U/L (5-34); Albumin 3.7 g/dL (3.5-5.0); Alkaline Phosphatase 56 U/L (40-110); Anion Gap 10 mmol/L (10-20); BUN (Urea Nitrogen) 13 mg/dL (7.0-18.7); Bilirubin, Total 0.2 mg/dL (0.2-1.2); Calc. Creatinine Clearance 0 mL/min (70-130); Calcium 8.4 mg/dL (7.8-10.44); Carbon Dioxide 24 mmol/L (22-29); Chloride 109 mmol/L (98-107); Estimated GFR 115; Glucose 95 mg/dL (70-105); Potassium 3.8 mmol/L (3.5-5.1); Protein, Total 6.7 g/dL (6.0-8.3); Sodium 139 mmol/L (136-145)
[2022-07-10 06:46] LABS: Bacteria/HPF None Seen HPF (None Seen); Bilirubin Negative (Negative); Blood, Urine 3+ (Negative); Clarity Clear (Clear); Glucose, Urine (Dipstick) Normal (Negative); Ketone, Urine Negative (Negative); Leukocyte Negative Leu/uL (Negative); Nitrite Negative (Negative); Protein, Urine (Dipstick) 20 mg/dL (Neg-Trace); RBC/HPF Greater than 50 HPF (0-3); Specific Gravity, Urine 1.039 (1.002-1.036); Urobilinogen 3 mg/dL (Less than 2)
== END 2022-07-10 07:45 | disposition home or self-care (01) ==
LOC: ERS 05:25
DX: O99.891 Other specified diseases and conditions complicating pregnancy (principal); R10.30 Lower abdominal pain, unspecified; O20.0 Threatened abortion
CPT/HCPCS: 36415; 76856; 80053; 81003; 81015; 84702; 85025; 85610; 85730; 86850; 86900; 86901; 87086; 96374; 96375; J2270; J2405